=== PATIENT | female | born 1935 | race African-American/Black ===

== ENCOUNTER 2017-09-02 08:11 | Emergency (ER) | payer OTHER ==
--- OUTSIDE RECORDS SUMMARY | 2017-09-02 08:14 | XMS REPORT ---
:1935 Author Organization [facility] Care Team Providers Name Role Phone Selina Chirinos Provider Role Unavailable Allergies, Adverse Reactions, Alerts Substance Reaction Event Type N.K.D.A. Info Not Available Non Drug Allergy Problems Problem Type Condition Code Onset Dates Condition Status Problem 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 Active Problem Pain in left knee M25.562 Active Problem Hyperlipidemia, unspecified E78.5 Active hyperlipidemia type Problem Hypertension I10 Active Problem Lymphoma C85.90 Active Problem Hyperlipidemia E78.5 Active Problem Sinus problem J34.9 Active Problem Peripheral edema R60.9 Active Problem Seasonal allergies J30.2 Active Problem Varicose veins I86.8 Active Assessment Pain in right leg M79.604 Active Assessment Pain of left leg M79.605 Active Assessment 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 Active Assessment Peripheral edema R60.9 Active Assessment Hypertension, unspecified type I10 Active Assessment Hyperlipidemia, unspecified E78.5 Active hyperlipidemia type Problem Hypertension, unspecified type I10 Active Assessment Varicose veins of both legs with I83.893 Active edema Problem Varicose veins of both legs with I83.893 Active edema Medications Medication Code Code Instructions Start End Status Dosage System Date Date Vitamin B12 [facility] 09301615272 2500 orally Active one under tongue once a day Deshaun Aspirin EC ND 67058162553 81 MG Orally Active 1 tablet Low Dose Once a day Ciprofloxacin ND 75203975869 500 MG Orally Active 1 tablet HCl Twice a day x7 days Vitamin D3 [facility] 07337517038 2000 UNIT Active 1 capsule Orally Once a day NIFEdipine [facility] [address]-61 60 MG Orally Active 1 tablet Once a day Furosemide ND 70162463912 20 mg Orally Active 1 tablet Once a day in am as needed for leg swelling Potassium ND 57799150582 20 MEQ Orally Sept Active 1 tablet Chloride ER Once a day 15, taken with 2018 lasix as needed; take with food Simvastatin ND 72403902013 40 MG Orally Active 1 tablet Once a day in the evening Results No Known Results Summary Purpose eClinicalWorks Submission
--- NOTE | 2017-09-02 09:19 | RAD REPORT ---
EXAM DESCRIPTION: CT - Stone Protocol - 09/02/2017 8:58 am CLINICAL HISTORY: Flank pain. right flank/groin pain, urinary frequency COMPARISON: Abdomen Pelvis Wo Contrast dated 11/16/2016; Abdomen Pelvis W Contrast dated 07/03/2016 TECHNIQUE: Axial images were obtained without oral or IV contrast. Lack of contrast limits solid org an and vascular assessment. The [id number] spans the entirety of the system partially obscuring uppermost abdomen and lung bases. Coronal reformatted images were obtained and reviewed. All CT scans are performed using dose optimization technique as appropriate and may include automated exposure control or mA/KV adjustment according to patient size. FINDINGS: The lower lung santana are clear. Imaged portions of the liver and spleen show no suspicious findings on non-contrast imaging. The panc reas and adrenal glands are normal. No pathologic lymphadenopathy in the abdomen or pelvis. Small fat containing umbilical hernia. No urinary tract stones or obstructive uropathy. No bowel obstruction, free air, free fluid or abscess. The appendix is not identified as a discrete s tructure, however, no secondary findings of appendicitis are identified. Mild nonspecific mesenteric edema noted, without change. Moderate lumbosacral degenerative changes. IMPRESSION: No urinary tract stones or obstructive uropathy. No new or aggressive finding is identified.
[2017-09-02 09:24] LABS: Absolute Lymphocytes (CBC) 1.4 K/uL (0.7-4.9); Absolute Monocytes 0.5 K/uL (0.1-1.3); Absolute Neutrophil 3.4 K/uL (1.8-8.0); Basophils % 0.9 % (0-1.3); Eosinophils % 2.2 % (0-4.4); Hematocrit 34.6 % (36.0-45.0); Lymphocytes % 24.9 % (15.3-44.8); MCH 31.2 pg (27.0-35.0); MCV 85.6 fL (80-100); MPV 7.7 fL (7.6-11.3); Monocytes % 9.4 % (3.3-12.3); RBC Red Blood Cell Count 4.05 M/uL (3.86-4.86)
[2017-09-02 09:42] LABS: Albumin 3.7 g/dL (3.4-5.0); Bilirubin Direct 0.2 mg/dL (0-0.2); Bilirubin Total 0.8 mg/dL (0.2-1.0); Potassium 3.5 mmol/L (3.5-5.1); Protein, Total 8.5 g/dL (6.4-8.2)
--- NOTE | 2017-09-02 10:16 | ER ---
Nurse's Notes [facility] Name: Celia Shaw Age: 81 yrs Sex: Female : 1935 Arrival Date: 09/02/2017 Time: 08:15 Bed 4 Private MD: Selina Chirinos Diagnosis: Urinary tract infection, site not specified;Dehydration Presentation: 09/02 08:38 Presenting complaint: Patient states: has had right flank pain radiating to RLQ and iw down right leg since last night, also has urinary frequency and dark colored urine since last night. Transition of care: patient was not received from another setting of care. Onset of symptoms was September 02, 2017. Risk Assessment: Do you want to hurt yourself or someone else? Patient reports no desire to harm self or others. Initial Sepsis Screen: Does the patient meet any 2 criteria? No. Patient's initial sepsis screen is negative. Does the patient have a suspected source of infection? No. Patient's initial sepsis screen is negative. Care prior to arrival: None. 08:38 Method Of Arrival: Wheelchair iw 08:38 Acuity: MIKE 3 iw Historical: - Allergies: 08:41 NKA; iw - Home Meds: 08:41 aspirin 81 mg Oral TbEC 1 tab once daily [Active]; Centrum Complete 18-400 mg-mcg Oral iw tab 1 tab once daily [Active]; furosemide 20 mg Oral tab 1 tab once daily [Active]; nifedipine 60 mg Oral TbER 1 tab once daily [Active]; potassium chloride 10 mEq Oral cpER 1 cap once daily [Active]; simvastatin 40 mg Oral tab 1 tab once daily [Active]; - PMHx: 08:41 Hyperlipidemia; Hypertension; LYMPHOMA; iw - PSHx: 08:41 lymphoma surgery; iw - Immunization history:: Adult Immunizations up to date. - Ebola Screening: : Patient negative for fever greater than or equal to 101.5 degrees Fahrenheit, and additional compatible Ebola Virus Disease symptoms Patient denies exposure to infectious person Patient denies travel to an Ebola-affected area in the 21 days before illness onset No symptoms or risks identified at this time. - Family history:: not pertinent. - Social history:: Smoking status: Patient/guardian denies using tobacco. - Hospitalizations: : No recent hospitalization is reported. Screenin:53 Abuse screen: Denies threats or abuse. Nutritional screening: No deficits noted. ae1 Tuberculosis screening: No symptoms or risk factors identified. Fall Risk No fall in past 12 months (0 pts). Secondary diagnosis (15 points) impaired mobility, IV access (20 points). Ambulatory Aid- Crutches/Cane/Walker (15 pts). Gait- Normal/Bed Rest/Wheelchair (0 pts) Mental Status- Oriented to own ability (0 pts). Assessment: 09:40 General: Appears in no apparent distress. uncomfortable, obese, well groomed, Behavior ae1 is calm, cooperative. Pain: Complains of pain in right lower quadrant Pain currently is 6 out of 10 on a pain scale. Neuro: Level of Consciousness is awake, alert, obeys commands, Oriented to person, place, time, situation, Appropriate for age. Cardiovascular: Heart tones S1 S2 present Patient's skin is warm and dry. Respiratory: Airway is patent Respiratory effort is even, unlabored, Respiratory pattern is regular, symmetrical, Breath sounds are clear bilaterally. GI: Bowel sounds present X 4 quads. Abd is soft and non tender. : Reports Upon arrival, patient attempted to urinate to no avail . EENT: wears glasses. . Derm: Skin is normal. Musculoskeletal: Patient ambulates with cane. 09:50 Reassessment: Patient up to bedside commode to urinate. Patient provided small amount ae1 of urine. Patient tolerated well. Vital Signs: 09:00 BP 158 / 83; Pulse 82; Resp 18; Pulse Ox 95% ; jl7 09:55 Temp 98.3(O); ae1 10:04 BP 140 / 93; Pulse 78; Resp 19; Pulse Ox 97% on R/A; ae1 11:08 BP 129 / 83; Pulse 79; Resp 18; Pulse Ox 95% on R/A; ae1 ED Course: 08:15 Patient arrived in ED. mr 08:15 Selina Chirinos MD is Private Physician. mr 08:32 Fernando Holley MD is Attending Physician. rn 08:38 Royer Rooney, SHARON is Primary Nurse. ae1 08:40 Triage completed. iw 08:55 CT completed. Patient tolerated procedure well. Patient moved to CT via wheelchair. sj Patient moved back from CT. 08:58 CT Stone Protocol In Process Unspecified. EDMS 09:13 Initial lab(s) drawn, by me, sent to lab. Inserted saline lock: 22 gauge in right jb1 antecubital area, using aseptic technique. Blood collected. 09:42 Arm band placed on left wrist. ae1 09:42 Placed in gown. Bed in low position. Call light in reach. Side rails up X 1. Cardiac ae1 monitor on. Pulse ox on. NIBP on. Warm blanket given. 10:15 Selina Chirinos MD is Referral Physician. rn 11:08 No provider procedures requiring assistance completed. IV discontinued, intact, ae1 bleeding controlled, No redness/swelling at site. Pressure dressing applied. Administered Medications: 10:27 Drug: Rocephin - (cefTRIAXone) 1 grams Route: IVPB; Infused Over: 30 mins; Site: right ae1 antecubital; 10:32 Follow up: IV Status: Completed infusion ae1 10:27 Drug: NS 0.9% 500 ml Route: IV; Rate: bolus; Site: right antecubital; ae1 11:08 Follow up: IV Status: Completed infusion ae1 Outcome: 10:15 Discharge ordered by . rn 11:09 Discharged to home via wheelchair. ae1 11:09 Condition: stable 11:09 Discharge instructions given to patient, Instructed on discharge instructions, follow up and referral plans. medication usage, Demonstrated understanding of instructions, Prescriptions given X 1. 11:19 Patient left the ED. ae1 Addendum: 09/06/2017 07:44 Addendum: Culture Results: Positive urine culture. No further action required. Bacteria s s sensitive to prescribed antibiotic. Signatures: Dispatcher [employer] EDMS Luis Fernando Comer jb1 Sandra Andrea mr BarrazaFabi Irene, RN Fernando Hickey MD MD rn Smirch, Shelby, RN RN ss Elliott, Andrea, RN RN ae1 Rhea Morales RN RN jl7
--- NOTE | 2017-09-02 10:16 | EDPHYS ---
Physician Documentation [facility] Name: Celia Shaw Age: 81 yrs Sex: Female : 1935 Arrival Date: 09/02/2017 Time: 08:15 Bed 4 Private MD: Selina Chirinos ED Physician Fernando Holley HPI: 09/02 08:55 This 81 yrs old Black Female presents to ER via Wheelchair with complaints of Abdominal rn Pain, Leg Pain, Back Pain. 08:55 The patient presents with abdominal pain in the lower abdomen. Onset: The rn symptoms/episode began/occurred yesterday. The symptoms do not radiate. Associated signs and symptoms: Pertinent positives: dysuria, Pertinent negatives: fever, vomiting, vomiting blood. The symptoms are described as achy. Modifying factors: The symptoms are alleviated by nothing, the symptoms are aggravated by nothing. Severity of pain: At its worst the pain was moderate in the emergency department the pain is unchanged. The patient has experienced a previous episode. Historical: - Allergies: 08:41 NKA; iw - Home Meds: 08:41 aspirin 81 mg Oral TbEC 1 tab once daily [Active]; Centrum Complete 18-400 mg-mcg Oral iw tab 1 tab once daily [Active]; furosemide 20 mg Oral tab 1 tab once daily [Active]; nifedipine 60 mg Oral TbER 1 tab once daily [Active]; potassium chloride 10 mEq Oral cpER 1 cap once daily [Active]; simvastatin 40 mg Oral tab 1 tab once daily [Active]; - PMHx: 08:41 Hyperlipidemia; Hypertension; LYMPHOMA; iw - PSHx: 08:41 lymphoma surgery; iw - Immunization history:: Adult Immunizations up to date. - Ebola Screening: : Patient negative for fever greater than or equal to 101.5 degrees Fahrenheit, and additional compatible Ebola Virus Disease symptoms Patient denies exposure to infectious person Patient denies travel to an Ebola-affected area in the 21 days before illness onset No symptoms or risks identified at this time. - Family history:: not pertinent. - Social history:: Smoking status: Patient/guardian denies using tobacco. - Hospitalizations: : No recent hospitalization is reported. ROS: 08:55 Constitutional: Negative for fever, chills, and weight loss, Eyes: Negative for injury, rn pain, redness, and discharge, Cardiovascular: Negative for chest pain, palpitations, and edema, Respiratory: Negative for shortness of breath, cough, wheezing, and pleuritic chest pain, Abdomen/GI: + right groin and abd pain Back: + low back pain MS/Extremity: Negative for injury and deformity, Skin: Negative for injury, rash, and discoloration, Neuro: Negative for headache, weakness, numbness, tingling, and seizure. Exam: 08:55 Constitutional: This is a well developed, well nourished patient who is awake, alert, rn and in no acute distress. Head/Face: Normocephalic, atraumatic. Cardiovascular: Regular rate and rhythm with a normal S1 and S2. No gallops, murmurs, or rubs. Normal PMI, no JVD. No pulse deficits. Respiratory: Lungs have equal breath sounds bilaterally, clear to auscultation and percussion. No rales, rhonchi or wheezes noted. No increased work of breathing, no retractions or nasal flaring. Abdomen/GI: soft, + mild RLQ tenderness, no rebound, + mild suprapubic tenderness MS/ Extremity: Pulses equal, no cyanosis. Neurovascular intact. Full, normal range of motion. Equal circumference. Neuro: Awake and alert, GCS 15, oriented to person, place, time, and situation. Cranial nerves II-XII grossly intact. Motor strength 5/5 in all extremities. Sensory grossly intact. Vital Signs: 09:00 BP 158 / 83; Pulse 82; Resp 18; Pulse Ox 95% ; jl7 09:55 Temp 98.3(O); ae1 10:04 BP 140 / 93; Pulse 78; Resp 19; Pulse Ox 97% on R/A; ae1 11:08 BP 129 / 83; Pulse 79; Resp 18; Pulse Ox 95% on R/A; ae1 MDM: 08:32 Patient medically screened. rn 10:14 Differential diagnosis: non-specific abd pain, Ureterolithiasis, urinary tract rn infection. Data reviewed: vital signs, nurses notes, lab test result(s), radiologic studies, CT scan, and as a result, I will discharge patient. Counseling: I had a detailed discussion with the patient and/or guardian regarding: the historical points, exam findings, and any diagnostic results supporting the discharge/admit diagnosis, lab results, radiology results, the need for outpatient follow up, to return to the emergency department if symptoms worsen or persist or if there are any questions or concerns that arise at home. Special discussion: Based on the patient's Hx, exam, and Dx evaluation, there is no indication for emergent surgery or inpatient Tx. It is understood by the patient/guardian that if the Sx's persist or worsen they need to return immediately for re-evaluation. I discussed with the patient/guardian in detail that at this point there is no indication for admission to the hospital. It is understood, however, that if the symptoms persist or worsen the patient needs to return immediately for re-evaluation. 09/02 08:40 Order name: Basic Metabolic Panel; Complete Time: 10:14 rn 09/02 08:40 Order name: CBC with Diff; Complete Time: 10:14 rn 09/02 08:40 Order name: Hepatic Function; Complete Time: 10:14 rn 09/02 08:40 Order name: Lipase; Complete Time: 10:14 rn 09/02 08:40 Order name: Urine Microscopic Only rn 09/02 10:10 Order name: Urine Dipstick--Ancillary (enter results) ag 09/02 08:40 Order name: IV Saline Lock; Complete Time: 09:13 rn 09/02 08:40 Order name: Labs collected and sent; Complete Time: 09:13 rn 09/02 08:40 Order name: Urine Dipstick-Ancillary (obtain specimen); Complete Time: 09:54 rn 09/02 08:40 Order name: CT Stone Protocol; Complete Time: 09:23 rn Administered Medications: 10:27 Drug: Rocephin - (cefTRIAXone) 1 grams Route: IVPB; Infused Over: 30 mins; Site: right ae1 antecubital; 10:32 Follow up: IV Status: Completed infusion ae1 10:27 Drug: NS 0.9% 500 ml Route: IV; Rate: bolus; Site: right antecubital; ae1 11:08 Follow up: IV Status: Completed infusion ae1 Disposition: 09/02/17 10:15 Discharged to Home. Impression: Urinary tract infection, site not specified, Dehydration. - Condition is Stable. - Discharge Instructions: Dehydration, Adult, Urinary Tract Infection. - Prescriptions for cefpodoxime 100 mg Oral Tablet - take 2 tablet by ORAL route every 12 hours for 10 days take with food; 40 tablet. - Medication Reconciliation Form, Thank You Letter, Antibiotic Education, Prescription Opioid Use form. - Follow up: Selina Chirinos MD; When: 2 - 3 days; Reason: Recheck today's complaints, Re-evaluation by your physician. - Problem is new. - Symptoms have improved. Signatures: Dispatcher [employer] EDGrace Fulton RN RN iw Nieto, Roman, MD MD rn Elliott, Andrea, RN RN ae1 Corrections: (The following items were deleted from the chart) 11:19 10:15 09/02/2017 10:15 Discharged to Home. Impression: Urinary tract infection, site ae1 not specified; Dehydration. Condition is Stable. Forms are Medication Reconciliation Form, Thank You Letter, Antibiotic Education, Prescription Opioid Use. Follow up: Selina Chirinos; When: 2 - 3 days; Reason: Recheck today's complaints, Re-evaluation by your physician. Problem is new. Symptoms have improved. rn
[2017-09-02] MEDS ORDERED: NA CHLORIDE 0.9% 500 ML ONE (10:27)
[2017-09-02] MEDS ORDERED: CEFTRIAXONE/SWI 1gm 1 GM/10 ML SYR ONE (10:27)
[2017-09-02 11:20] LABS: Urine Amorphous Sediment 1+ /HPF (NONE SEEN); Urine Bacteria 20-50 /HPF (<20); Urine Culture Reflex Order REFLEXED; Urine Mucus 1+ /HPF (NONE SEEN); Urine RBC <5 /HPF (NONE SEEN)
[2017-09-02 11:21] LABS: Urine Blood TRACE (NEG); Urine Glucose NEGATIVE (NEG); Urine Protein 1+ (NEG)
[2017-09-02 11:34] VITALS: TEMP 98.3
[2017-09-02 11:36] VITALS: BP 129/83; O2SAT 95
== END 2017-09-02 11:19 | disposition home or self-care (01) ==
LOC: ER 08:11
DX: N39.0 Urinary tract infection, site not specified (principal); E86.0 Dehydration; I10 Essential (primary) hypertension; E78.5 Hyperlipidemia, unspecified; Z85.72 Personal history of non-Hodgkin lymphomas; Z79.82 Long term (current) use of aspirin
CPT/HCPCS: 36415; 74176; 76377; 80048; 80076; 83690; 85025; 87077 ×2; 87086; 87088; 87186 ×2; 96361; 96374; 99285; J0696; 81003; 81015

== ENCOUNTER 2017-12-17 13:45 | Emergency (ER) | payer OTHER ==
--- OUTSIDE RECORDS SUMMARY | 2017-12-17 13:47 | XMS REPORT ---
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 Active Problem Pain in left knee M25.562 Active Problem Hyperlipidemia, unspecified E78.5 Active hyperlipidemia type Problem Hypertension I10 Active Problem Lymphoma C85.90 Active Problem Hyperlipidemia E78.5 Active Problem Sinus problem J34.9 Active Problem Peripheral edema R60.9 Active Problem Seasonal allergies J30.2 Active Problem Varicose veins I86.8 Active Assessment Urinary tract infection, site not N39.0 Active specified Problem Hypertension, unspecified type I10 Active Problem Varicose veins of both legs with I83.893 Active edema Medications Medication Code Code Instructions Start End Status Dosage System Date Date Vitamin D3 [facility] 54955199767 2000 UNIT Active 1 capsule Orally Once a day Ciprofloxacin [facility] 91265673278 500 MG Orally September 22Sep Active 1 tablet HCl every 12 hrs 2017 Simvastatin ND 34266298387 40 MG Orally Active 1 tablet Once a day in the evening NIFEdipine [facility] [address]-19 60 MG Orally Active 1 tablet Once a day Deshaun Aspirin EC ND 88094801965 81 MG Orally Active 1 tablet Low Dose Once a day Ciprofloxacin ND 33574712946 500 MG Orally Active 1 tablet HCl Twice a day x7 days Furosemide [facility] 58708981034 20 mg Orally Active 1 tablet Once a day in am as needed for leg swelling Potassium ND 10013566933 20 MEQ Orally Sept Active 1 tablet Chloride ER Once a day 15, taken with 2018 lasix as needed; take with food Vitamin B12 [facility] 52100251562 2500 orally Active one under tongue once a day Results Name Result Date Reference Range Unit Abnormality Flag URINALYSIS AUTO W/O SCOPE ----Blood (Hemolyzed) Negative 20170922 ----Blood (Non-Hemolyzed) Negative 20170922 ----Ketones 1+ 20170922 ----Glucose (mg/dL) Negative 20170922 ----Protein (mg/dL) 1+ 20170922 ----Specific [place] 1.015 20170922 ----pH 6.5 20170922 ----Leukocytes 3+ 20170922 ----Nitrite Negative 20170922 Summary Purpose eClinicalWorks Submission
--- OUTSIDE RECORDS SUMMARY | 2017-12-17 13:47 | XMS REPORT ---
[...] tract infection, site not N39.0 Active specified Assessment Follow-up exam Z09 Active Problem Hypertension, unspecified type I10 Active Assessment Hematuria, unspecified R31.9 Active Problem Varicose veins of both legs with I83.893 Active edema Medications Medication Code Code Instructions Start End Status Dosage System Date Date Vitamin D3 [facility] 59484391309 2000 UNIT Active 1 capsule Orally Once a day Simvastatin ND 72563786088 40 MG Orally Active 1 tablet Once a day in the evening Ciprofloxacin ND 35909094951 500 MG Orally Active 1 tablet HCl Twice a day x7 days Potassium ND 40443471391 20 MEQ Orally Sept Active 1 tablet Chloride ER Once a day 15, taken with 2018 lasix as needed; take with food Furosemide ND 87847883177 20 mg Orally Active 1 tablet Once a day in am as needed for leg swelling Vitamin B12 ND 69408042685 2500 orally Active one under tongue once a day Deshaun Aspirin EC ND 65571194464 81 MG Orally Active 1 tablet Low Dose Once a day Macrobid [facility] 25972932447 100 mg Orally September 07August Active 1 capsule every 12 hrs 2018 21, with food 2017 NIFEdipine [facility] [address]-24 60 MG Orally Active 1 tablet Once a day Results No Known Results Summary Purpose eClinicalWorks Submission
--- OUTSIDE RECORDS SUMMARY | 2017-12-17 13:47 | XMS REPORT ---
:1935 Author [facility] Care Team Providers Name Role Phone Selina Chirinos Provider Role Unavailable Allergies, Adverse Reactions, Alerts Substance Reaction Event Type N.K.D.A. Info Not Available Non Drug Allergy Problems Problem Type Condition Code Onset Dates Condition Status Problem 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 Active Problem Pain in left knee M25.562 Active Problem Hyperlipidemia, unspecified E78.5 Active hyperlipidemia type Problem Hypertension I10 Active Assessment 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 Active Problem Lymphoma C85.90 Active Problem Hyperlipidemia E78.5 Active Problem Sinus problem J34.9 Active Problem Peripheral edema R60.9 Active Problem Seasonal allergies J30.2 Active Problem Varicose veins I86.8 Active Assessment Peripheral edema R60.9 Active Assessment Hematuria, unspecified R31.9 Active Assessment Hyperlipidemia, unspecified E78.5 Active hyperlipidemia type Assessment Varicose veins I86.8 Active Assessment Hypertension, unspecified type I10 Active Assessment Urinary tract infection, site not N39.0 Active specified Problem Hypertension, unspecified type I10 Active Assessment Abnormal urinalysis R82.90 Active Problem Varicose veins of both legs with I83.893 Active edema Medications Medication Code Code Instructions Start End Status Dosage System Date Date Simvastatin ND 84232800121 40 MG Orally Active 1 tablet Once a day in the evening Vitamin D3 ND 42617598085 2000 UNIT Active 1 capsule Orally Once a day Vitamin B12 ND 66987216348 2500 orally Active one under tongue once a day NIFEdipine ER ND 28515103992 60 MG Orally Oct 24, Active 1 tablet Once a day 2018 on an empty stomach Ciprofloxacin ND 84044958756 500 MG Orally Active 1 tablet HCl Twice a day x7 days Deshaun Aspirin EC ND 30306751211 81 MG Orally Active 1 tablet Low Dose Once a day Potassium ND 78256290635 20 MEQ Orally May Active 1 tablet Chloride ER Once a day 24, taken with 2019 lasix as needed; take with food NIFEdipine [facility] [address]-59 60 MG Orally Active 1 tablet Once a day Furosemide [facility] 76151175317 20 mg Orally Active 1 tablet Once a day in am as needed for leg swelling Results Name Result Date Reference Range Unit Abnormality Flag Urine Dip Stick ----SP. Gr 1.010 20171024 ----pH 6.0 20171024 ----Ketone 1+ 20171024 ----Glucose Negative 20171024 ----Blood Trace 20171024 ----Protein 2+ 20171024 ----Nitrite Negative 20171024 ----Leukocytes 3+ 20171024 Summary Purpose eClinicalWorks Submission
--- OUTSIDE RECORDS SUMMARY | 2017-12-17 13:47 | XMS REPORT ---
:1935 [facility] Care Team Providers Name Role Phone Selina [...] Status Dosage System Date Date Vitamin B12 [facility] 12551196953 2500 orally Active one under tongue once a day Deshaun Aspirin EC ND 60473270750 81 MG Orally Active 1 tablet Low Dose Once a day Ciprofloxacin ND 91608842846 500 MG Orally Active 1 tablet HCl Twice a day x7 days Vitamin D3 [facility] 93162735063 2000 UNIT Active 1 capsule Orally Once a day NIFEdipine [facility] [address]-21 60 MG Orally Active 1 tablet Once a day Furosemide ND 96530184242 20 mg Orally Active 1 tablet Once a day in am as needed for leg swelling Potassium ND 87778089765 20 MEQ Orally Sept Active 1 tablet Chloride ER Once a day 15, taken with 2018 lasix as needed; take with food Simvastatin ND 18280815378 40 MG Orally Active 1 tablet Once a day in the evening Results No Known Results Summary Purpose eClinicalWorks Submission
[2017-12-17] MEDS ORDERED: MORPHINE 4 MG/ML SYR ONE (15:09)
[2017-12-17] MEDS ORDERED: ONDANSETRON 4 MG/2 ML VIAL ONE (15:09)
[2017-12-17 15:12] LABS: Urine Blood TRACE (NEG); Urine Glucose NEGATIVE (NEG); Urine Protein NEGATIVE (NEG)
[2017-12-17 15:29] LABS: Albumin 3.7 g/dL (3.4-5.0); Bilirubin Direct 0.1 mg/dL (0-0.2); Bilirubin Total 0.5 mg/dL (0.2-1.0); Potassium 3.5 mmol/L (3.5-5.1); Protein, Total 8.6 g/dL (6.4-8.2)
[2017-12-17 15:40] LABS: Absolute Lymphocytes (CBC) 1.8 K/uL (0.7-4.9); Absolute Monocytes 0.4 K/uL (0.1-1.3); Absolute Neutrophil 3.2 K/uL (1.8-8.0); Basophils % 1.3 % (0-1.3); Eosinophils % 1.6 % (0-4.4); Hematocrit 39.5 % (36.0-45.0); Lymphocytes % 32.7 % (15.3-44.8); MCH 28.8 pg (27.0-35.0); MCV 83.2 fL (80-100); MPV 8.1 fL (7.6-11.3); Monocytes % 7.9 % (3.3-12.3); RBC Red Blood Cell Count 4.75 M/uL (3.86-4.86)
--- NOTE | 2017-12-17 15:40 | RAD REPORT ---
EXAM DESCRIPTION: USExtrem Venous W Compress Bil12/17/2017 3:23 pm CLINICAL HISTORY: Bilateral leg pain COMPARISON: 2014 FINDINGS: The common femoral, superficial femoral, popliteal and posterior tibial veins bilaterally are compressible and demonstrate augmentation. Doppler demonstrates good flow. IMPRESSION: No evidence of deep venous thrombosis involving either lower extremity.
--- NOTE | 2017-12-17 16:31 | RAD REPORT ---
EXAM DESCRIPTION: CT - Abdomen Pelvis W Contrast - 12/17/2017 4:02 pm CLINICAL HISTORY: Abdominal pain/right lower quadrant pain bold COMPARISON: August 2017 and 2013 TECHNIQUE: Computed axial tomography of the abdomen pelvis was obtained. 100 cc Isovue-300 was admin istered intravenously. Oral contrast was not requested which limits evaluation of bowel. All CT scans are performed using dose optimization technique as appropriate and may include automated exposure control or mA/KV adjustment according to patient size. FINDINGS: The liver, spleen, pancreas, adrenal and kidneys appear unremarkable. There is no evidence of diverticulitis. The appendix is not seen. Small umbilical hernia contains fat. Two small lymph nodes within the retrocrural region are unchange d from 2013 IMPRESSION: No acute abnormality is displayed.
--- NOTE | 2017-12-17 16:52 | EDPHYS ---
Physician Documentation [facility] Name: Celia Shaw Age: 82 yrs Sex: Female : 1935 Arrival Date: 12/17/2017 Time: 13:48 Bed 25 Private MD: ED Physician Dion Duncan HPI: 12/17 14:41 This 82 yrs old Black Female presents to ER via Wheelchair with complaints of Abdominal kdr Pain \T\ bilateral leg pain. 14:41 The patient presents with abdominal pain right lower quadrant. Onset: The kdr symptoms/episode began/occurred gradually, yesterday. The symptoms radiate to the right flank. Associated signs and symptoms: Pertinent positives: The patient has had increasing pain to both lower legs from the knees to the ankles. She c/o swelling to both lower extremities where she has had prior venous stripping for varicose veins. The symptoms are described as achy, dull, vague. Modifying factors: The symptoms are alleviated by nothing, the symptoms are aggravated by movement, pressure. Severity of pain: At its worst the pain was moderate in the emergency department the pain has improved mildly. The patient has not experienced similar symptoms in the past. The patient has not recently seen a physician. She states that she feels like it did when she had a prior UTI. Historical: - Allergies: 13:52 NKA; aj1 - Home Meds: 13:52 aspirin 81 mg Oral TbEC 1 tab once daily [Active]; Centrum Complete 18-400 mg-mcg Oral aj1 tab 1 tab once daily [Active]; furosemide 20 mg Oral tab 1 tab once daily [Active]; nifedipine 60 mg Oral TbER 1 tab once daily [Active]; potassium chloride 10 mEq Oral cpER 1 cap once daily [Active]; simvastatin 40 mg Oral tab 1 tab once daily [Active]; - PMHx: 13:52 Hyperlipidemia; Hypertension; LYMPHOMA; aj1 - Immunization history:: Flu vaccine is up to date. - Social history:: Smoking status: Patient/guardian denies using tobacco. - Ebola Screening: : Patient denies travel to an Ebola-affected area in the 21 days before illness onset. ROS: 14:41 Constitutional: Negative for fever, chills, and weight loss, Eyes: Negative for injury, kdr pain, redness, and discharge, ENT: Negative for injury, pain, and discharge, Neck: Negative for injury, pain, and swelling, Cardiovascular: Negative for chest pain, palpitations, and edema, Respiratory: Negative for shortness of breath, cough, wheezing, and pleuritic chest pain, Back: Negative for injury and pain, : Negative for injury, bleeding, discharge, and swelling, Skin: Negative for injury, rash, and discoloration, Neuro: Negative for headache, weakness, numbness, tingling, and seizure activity. Psych: Negative for depression, anxiety, suicide ideation, homicidal ideation, and hallucinations, Allergy/Immunology: Negative for hives, rash, and allergies, Endocrine: Negative for neck swelling, polydipsia, polyuria, polyphagia, and marked weight changes, Hematologic/Lymphatic: Negative for swollen nodes, abnormal bleeding, and unusual bruising. 14:41 Abdomen/GI: Positive for abdominal pain, Negative for nausea, vomiting, and diarrhea, diarrhea, constipation, abdominal distension, anorexia, dysphagia, hematemesis, black/tarry stool, rectal pain, rectal bleeding, bowel incontinence. 14:41 MS/extremity: Positive for pain, swelling, tenderness. Exam: 14:41 Constitutional: This is a well developed, well nourished patient who is awake, alert, kdr and in no acute distress. Head/Face: Normocephalic, atraumatic. Eyes: Pupils equal round and reactive to light, extra-ocular motions intact. Lids and lashes normal. Conjunctiva and sclera are non-icteric and not injected. Cornea within normal limits. Periorbital areas with no swelling, redness, or edema. Neck: Trachea midline, no thyromegaly or masses palpated, and no cervical lymphadenopathy. Supple, full range of motion without nuchal rigidity, or vertebral point tenderness. No Meningismus. Chest/axilla: Normal chest wall appearance and motion. Nontender with no deformity. No lesions are appreciated. Cardiovascular: Regular rate and rhythm with a normal S1 and S2. No gallops, murmurs, or rubs. Normal PMI, no JVD. No pulse deficits. Respiratory: Lungs have equal breath sounds bilaterally, clear to auscultation and percussion. No rales, rhonchi or wheezes noted. No increased work of breathing, no retractions or nasal flaring. Back: No spinal tenderness. No costovertebral tenderness. Full range of motion. Skin: Warm, dry with normal turgor. Normal color with no rashes, no lesions, and no evidence of cellulitis. 14:41 Abdomen/GI: Inspection: obese Bowel sounds: normal, active, Palpation: soft, mild abdominal tenderness, in the anterior aspect of right lateral abdomen and right lower quadrant, rebound tenderness, is not appreciated, voluntary guarding, is not appreciated, involuntary guarding, is not appreciated. Vital Signs: 13:52 BP 135 / 86; Pulse 102; Resp 20; Temp 97.2; Pulse Ox 98% on R/A; Weight 97.52 kg (R); aj1 Height 5 ft. 6 in. (167.64 cm) (R); Pain 10/10; 14:00 BP 140 / 90 RA Sitting (auto/lg); Pulse 95; Resp 19; Pulse Ox 97% on R/A; Pain 10/10; jp3 15:09 BP 128 / 82; Pulse 95; Resp 16; Pulse Ox 97% on R/A; kr2 16:34 BP 131 / 82; Pulse 87; Resp 16; Pulse Ox 95% on R/A; kr2 17:21 BP 130 / 80; Pulse 88; Resp 17; Pulse Ox 99% ; kr2 13:52 Body Mass Index 34.70 (97.52 kg, 167.64 cm) aj1 MDM: 14:41 Data reviewed: vital signs, nurses notes, lab test result(s), radiologic studies. kdr Counseling: I had a detailed discussion with the patient and/or guardian regarding: the historical points, exam findings, and any diagnostic results supporting the discharge/admit diagnosis, lab results, radiology results. 16:50 ED course: The patient is improved with the interventions given. She had no other c/o kdr or concerns.. 16:51 Patient medically screened. kdr 12/17 14:37 Order name: Basic Metabolic Panel; Complete Time: 15:43 kdr 12/17 14:37 Order name: CBC with Diff; Complete Time: 15:43 kdr 12/17 14:37 Order name: Creatinine for Radiology; Complete Time: 15:43 kdr 12/17 14:37 Order name: Hepatic Function; Complete Time: 15:43 kdr 12/17 14:37 Order name: Lipase; Complete Time: 15:43 kdr 12/17 14:37 Order name: Urine Culture kdr 12/17 14:37 Order name: IV Saline Lock; Complete Time: 15:00 kdr 12/17 14:37 Order name: CT Abd/Pelvis - W/Contrast; Complete Time: 16:41 kdr 12/17 14:40 Order name: US Extremity Venous W Compression Shai; Complete Time: 15:43 kdr 12/17 15:08 Order name: Urine Dipstick--Ancillary (enter results); Complete Time: 15:43 ms 12/17 14:37 Order name: Labs collected and sent; Complete Time: 15:00 kdr Administered Medications: 15:05 Drug: Zofran 4 mg Route: IVP; Site: left antecubital; kr2 15:30 Follow up: Response: No adverse reaction kr2 15:10 Drug: morphine 4 mg Route: IVP; Site: left antecubital; kr2 15:30 Follow up: Response: No adverse reaction; Pain is decreased kr2 17:13 Drug: Bactrim (160 mg-800 mg (DS) 1 tablet Route: PO; kr2 17:13 Follow up: Response: Medication administered at discharge. kr2 17:13 Drug: Tylenol #3 (300 mg-30 mg) 1 tablet Route: PO; kr2 17:13 Follow up: Response: Medication administered at discharge. kr2 Disposition: 12/17/17 16:51 Discharged to Home. Impression: Abdominal and pelvic pain, UTI. - Condition is Stable. - Discharge Instructions: Abdominal Pain, Adult, [id number]. - Prescriptions for Zofran 4 mg Oral Tablet - take 1 tablet by ORAL route every 4-6 hours As needed; 12 tablet. Tramadol 50 mg Oral Tablet - take 1 tablet by ORAL route every 8 hours as needed; 12 tablet. Bactrim DS 800- 160 mg Oral Tablet - take 1 tablet by ORAL route every 12 hours for 7 days; 14 tablet. - Medication Reconciliation Form, Thank You Letter, Antibiotic Education form. - Follow up: Private Physician; When: 2 - 3 days; Reason: If symptoms return, Further diagnostic work-up, Recheck today's complaints, Continuance of care, Re-evaluation by your physician. - Problem is new. - Symptoms have improved. Signatures: Dispatcher [employer] EDIvana Epperson RN RN aj1 Dion Duncan MD MD kdr Paulina, Kandis, RN RN kr2 Corrections: (The following items were deleted from the chart) 17:22 16:51 12/17/2017 16:51 Discharged to Home. Impression: Abdominal and pelvic pain; UTI. kr2 Condition is Stable. Forms are Medication Reconciliation Form, Thank You Letter, Antibiotic Education, Prescription Opioid Use. Follow up: Private Physician; When: 2 - 3 days; Reason: If symptoms return, Further diagnostic work-up, Recheck today's complaints, Continuance of care, Re-evaluation by your physician. Problem is new. Symptoms have improved. kdr
--- NOTE | 2017-12-17 16:52 | ER ---
Nurse's Notes [facility] Name: Celia Shaw Age: 82 yrs Sex: Female : 1935 Arrival Date: 12/17/2017 Time: 13:48 Bed 25 Private MD: Diagnosis: Abdominal and pelvic pain;UTI Presentation: 12/17 13:48 Presenting complaint: Patient states: Reports pain to both knees, both lower legs, and aj1 RLQ since yesterday. Denies injury to either leg. Denies N/V/D. Denies fever. Transition of care: patient was not received from another setting of care. Onset of symptoms was December 16, 2017. Risk Assessment: Do you want to hurt yourself or someone else? Patient reports no desire to harm self or others. Initial Sepsis Screen: Does the patient meet any 2 criteria? HR > 90 bpm. No. Patient's initial sepsis screen is negative. Does the patient have a suspected source of infection? Yes: Acute abdominal pain. Care prior to arrival: None. 13:48 Method Of Arrival: Wheelchair aj1 13:48 Acuity: MIKE 3 aj1 Triage Assessment: 13:52 General: Appears in no apparent distress. uncomfortable, Behavior is calm, cooperative, aj1 appropriate for age. Pain: Complains of pain in right lower quadrant, right leg and left leg Pain currently is 10 out of 10 on a pain scale. Neuro: Level of Consciousness is awake, alert, obeys commands. Cardiovascular: Patient's skin is warm and dry. Respiratory: Airway is patent Respiratory effort is even, unlabored, Respiratory pattern is regular, symmetrical. GI: Patient currently denies diarrhea, nausea, vomiting. Historical: - Allergies: 13:52 NKA; aj1 - Home Meds: 13:52 aspirin 81 mg Oral TbEC 1 tab once daily [Active]; Centrum Complete 18-400 mg-mcg Oral aj1 tab 1 tab once daily [Active]; furosemide 20 mg Oral tab 1 tab once daily [Active]; nifedipine 60 mg Oral TbER 1 tab once daily [Active]; potassium chloride 10 mEq Oral cpER 1 cap once daily [Active]; simvastatin 40 mg Oral tab 1 tab once daily [Active]; - PMHx: 13:52 Hyperlipidemia; Hypertension; LYMPHOMA; aj1 - Immunization history:: Flu vaccine is up to date. - Social history:: Smoking status: Patient/guardian denies using tobacco. - Ebola Screening: : Patient denies travel to an Ebola-affected area in the 21 days before illness onset. Screenin:00 Abuse screen: Denies threats or abuse. Denies injuries from another. Nutritional kr2 screening: No deficits noted. Tuberculosis screening: No symptoms or risk factors identified. Fall Risk Ambulatory Aid- Crutches/Cane/Walker (15 pts). Assessment: 14:30 General: Appears in no apparent distress. uncomfortable, well groomed, well developed, kr2 Behavior is calm, cooperative, appropriate for age. Pain: Complains of pain in pelvis and left leg and right leg Pain radiates to abdomen Pain currently is 8 out of 10 on a pain scale. Quality of pain is described as aching, Is continuous, Alleviated by rest, Aggravated by increased activity. Neuro: Level of Consciousness is awake, alert, obeys commands, Oriented to person, place, time, situation, Appropriate for age Intact. Cardiovascular: Capillary refill < 3 seconds in bilateral fingers Patient's skin is warm and dry. Edema is 1+ to left leg and right leg Rhythm is regular. Respiratory: Airway is patent Respiratory effort is even, unlabored, Respiratory pattern is regular, symmetrical. GI: Bowel sounds present X 4 quads. Abd is soft and non tender X 4 quads. : Reports pain in suprapubic area difficulty urinating. EENT: Oral mucosa is moist. Derm: Skin is intact, is healthy with good turgor, Skin is pink, warm \T\ dry. Musculoskeletal: Circulation, motion, and sensation intact. Range of motion: limited in left knee and right knee. 15:30 Reassessment: Patient appears in no apparent distress at this time. Patient and/or kr2 family updated on plan of care and expected duration. Pain level reassessed. Patient is alert, oriented x 3, equal unlabored respirations, skin warm/dry/pink. States pain has decreased. 16:34 Reassessment: Patient appears in no apparent distress at this time. Patient and/or kr2 family updated on plan of care and expected duration. Pain level reassessed. Patient is alert, oriented x 3, equal unlabored respirations, skin warm/dry/pink. 17:21 Reassessment: Patient appears in no apparent distress at this time. Patient and/or kr2 family updated on plan of care and expected duration. Pain level reassessed. Patient is alert, oriented x 3, equal unlabored respirations, skin warm/dry/pink. Vital Signs: 13:52 BP 135 / 86; Pulse 102; Resp 20; Temp 97.2; Pulse Ox 98% on R/A; Weight 97.52 kg (R); aj1 Height 5 ft. 6 in. (167.64 cm) (R); Pain 10/10; 14:00 BP 140 / 90 RA Sitting (auto/lg); Pulse 95; Resp 19; Pulse Ox 97% on R/A; Pain 10/10; jp3 15:09 BP 128 / 82; Pulse 95; Resp 16; Pulse Ox 97% on R/A; kr2 16:34 BP 131 / 82; Pulse 87; Resp 16; Pulse Ox 95% on R/A; kr2 17:21 BP 130 / 80; Pulse 88; Resp 17; Pulse Ox 99% ; kr2 13:52 Body Mass Index 34.70 (97.52 kg, 167.64 cm) aj1 ED Course: 13:48 Patient arrived in ED. tw3 13:52 Triage completed. aj1 13:52 Arm band placed on Patient placed in an exam room. aj1 14:00 Pulse ox on. NIBP on. jp3 14:10 Kandis Gallardo, RN is Primary Nurse. kr2 14:11 Dion Duncan MD is Attending Physician. kdr 14:13 Bed in low position. Call light in reach. Side rails up X 1. Warm blanket given. Pillow jp3 given. 14:50 Urine collected: clean catch specimen, clear, Amount Voided: 6mL. Inserted saline lock: kr2 20 gauge in left antecubital area, using aseptic technique. Blood collected. 15:21 Ultrasound completed. Patient tolerated well. aa4 15:21 US Extremity Venous W Compression Shai In Process Unspecified. EDMS 15:[address] via wheelchair. cw1 15:58 CT completed. Patient moved back from CT. cw1 16:03 CT Abd/Pelvis - W/Contrast In Process Unspecified. EDMS 17:15 No provider procedures requiring assistance completed. IV discontinued, intact, kr2 bleeding controlled, No redness/swelling at site. Pressure dressing applied. Administered Medications: 15:05 Drug: Zofran 4 mg Route: IVP; Site: left antecubital; kr2 15:30 Follow up: Response: No adverse reaction kr2 15:10 Drug: morphine 4 mg Route: IVP; Site: left antecubital; kr2 15:30 Follow up: Response: No adverse reaction; Pain is decreased kr2 17:13 Drug: Bactrim (160 mg-800 mg (DS) 1 tablet Route: PO; kr2 17:13 Follow up: Response: Medication administered at discharge. kr2 17:13 Drug: Tylenol #3 (300 mg-30 mg) 1 tablet Route: PO; kr2 17:13 Follow up: Response: Medication administered at discharge. kr2 Outcome: 16:51 Discharge ordered by . kdr 17:20 Discharged to home via wheelchair. kr2 17:20 Condition: good 17:20 Discharge instructions given to patient, Instructed on discharge instructions, follow up and referral plans. medication usage, Demonstrated understanding of instructions, follow-up care, medications, Prescriptions given X 3. 17:22 Patient left the ED. kr2 Addendum: 12/20/2017 07:46 Addendum: Culture Results: Positive urine culture. No further action required. Bacteria i w sensitive to prescribed antibiotic. Signatures: Dispatcher [employer] EDMS Ivana Barron RN RN Dion Haider MD MD kdr Williams, Irene, RN RN iw Frazier, Amanda aa4 Deann Moreno cw1 [place] tw3 Kandis Gallardo RN RN kr2 Anderson Stephens jp3
[2017-12-17] MEDS ORDERED: SMZ./TMP. 800/160 MG TABLET ONE (17:05)
[2017-12-17] MEDS ORDERED: CODEINE 30MG/APAP 300MG TAB ONE (17:06)
[2017-12-17 17:42] VITALS: TEMP 97.2
[2017-12-17 17:47] VITALS: BP 130/80; O2SAT 99
== END 2017-12-17 17:22 | disposition home or self-care (01) ==
LOC: ER 13:45
DX: N39.0 Urinary tract infection, site not specified (principal); I10 Essential (primary) hypertension; E78.5 Hyperlipidemia, unspecified; Z85.72 Personal history of non-Hodgkin lymphomas; Z79.82 Long term (current) use of aspirin
CPT/HCPCS: 36415; 74177; 80048; 80076; 81003; 83690; 85025; 87077; 87086; 87088; 87186; 93970; 96374; 96375; 99284; J2405; Q9967

== ENCOUNTER 2019-04-08 09:00 | Emergency (ER) | payer MEDICARE, OTHER ==
--- OUTSIDE RECORDS SUMMARY | 2019-04-08 09:02 | XMS REPORT ---
:1935 [facility] Providers Name Role Phone [...] Active Problem Varicose veins I86.8 Active Assessment Hyperlipidemia E78.5 Active Assessment Varicose veins I86.8 Active Assessment 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 Active Assessment Hypertension I10 Active Assessment Peripheral edema R60.9 Active Problem Hypertension, unspecified type I10 Active Assessment Acute UTI N39.0 Active Problem Varicose veins of both legs with I83.893 Active edema Medications Medication Code Code Instructions Start End Status Dosage System Date Date Furosemide ND 68510677899 20 mg Orally Active 1 tablet in Once a day am as (Take with KCl) needed for leg swelling Augmentin [facility] 94231355806 500-125 MG Apr 03, Apr 10, Active 1 tablet Orally every 12 2018 2019 hrs Ciprofloxacin ND 83632673877 500 MG Orally Active 1 tablet HCl Twice a day x7 days Potassium ND 31284096957 20 MEQ Orally Dec 29, Active 1 tablet Chloride ER Once a day 2018 taken with lasix as needed; take with food NIFEdipine ER ND 18525998189 60 MG Orally Oct 24, Active 1 tablet on Once a day 2018 an empty stomach Vitamin D3 ND 14652597242 2000 UNIT Active 1 capsule Orally Once a day Vitamin B12 ND 57079888913 2500 orally Active one under tongue once a day Deshaun Aspirin EC ND 51619035155 81 MG Orally Active 1 tablet Low Dose Once a day Simvastatin ND 53961598080 40 MG Orally Active 1 tablet in Once a day the evening Results No Known Results Summary Purpose eClinicalWorks Submission
--- OUTSIDE RECORDS SUMMARY | 2019-04-08 09:03 | XMS REPORT ---
:1935 Author Organization [employer] Care Team Providers Name Role Phone Selina Chirinos Provider Role Unavailable Allergies No Known Allergies Problems Problem Type Condition Code Onset Dates Condition Status Problem Hyperlipidemia, unspecified E78.5 Active hyperlipidemia type Problem Peripheral edema R60.9 Active Problem Pain in left knee M25.562 Active Problem Hypertension, unspecified type I10 Active Problem Varicose veins of both legs with I83.893 Active edema Problem 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 Active Problem Hyperlipidemia E78.5 Active Problem Hypertension I10 Active Problem Depression screening Z13.31 Active Problem Varicose veins I86.8 Active Problem Sinus problem J34.9 Active Problem Lymphoma C85.90 Active Problem Seasonal allergies J30.2 Active Medications No Known Medications Results No Known Results Summary Purpose eClinicalWorks Submission
--- OUTSIDE RECORDS SUMMARY | 2019-04-08 09:03 | XMS REPORT ---
:1935 Author Organization [employer] Care Team Providers Name Role Phone Taran Selina Provider Role Unavailable Allergies, Adverse Reactions, Alerts Substance Reaction Event Type N.K.D.A. Info Not Available Non Drug Allergy Problems Problem Type Condition Code Onset Dates Condition Status Problem Pain in left knee M25.562 Active Problem Sinus problem J34.9 Active Problem Peripheral edema R60.9 Active Problem Myalgia M79.10 Active Assessment Myalgia M79.10 Active Problem Depression screening Z13.31 Active Assessment 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 Active Problem Allergic rhinitis, unspecified J30.9 Active seasonality, unspecified trigger Problem Seasonal allergies J30.2 Active Problem Varicose veins I86.8 Active Problem Hyperlipidemia E78.5 Active Problem Lymphoma C85.90 Active Assessment Allergic rhinitis, unspecified J30.9 Active seasonality, unspecified trigger Assessment Depression screening Z13.31 Active Assessment Hyperlipidemia, unspecified E78.5 Active hyperlipidemia type Assessment Peripheral edema R60.9 Active Problem Hypertension, unspecified type I10 Active Problem Varicose veins of both legs with I83.893 Active edema Assessment Hypertension, unspecified type I10 Active Problem 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 Active Problem Hyperlipidemia, unspecified E78.5 Active hyperlipidemia type Medications Medication Code Code Instructions Start End Date Status Dosage System Date Vitamin D3 [facility] 19045429541 400 UNIT Orally Active 800 IU__1 Once a day capsule Simvastatin ND 05183208363 40 MG Orally Active 1 tablet Once a day in the evening NIFEdipine ER ND 74804845491 60 MG Orally Oct 24, Active 1 tablet Once a day 2017 on an empty stomach Deshaun Aspirin EC ND 68474050949 81 MG Orally Active 1 tablet Low Dose Once a day Vitamin B12 [facility] 25067869973 2500 orally Active one under tongue once a day Potassium ND 49384782267 20 MEQ Orally May Active 1 tablet; Chloride ER Once a day 2019 take with lasix; as needed; take with food Ciprofloxacin ND 68788364177 500 MG Orally Active 1 tablet HCl Twice a day x7 days Furosemide NDC 68653113309 20 MG Orally Active 1 tablet Once a day in am as (Take with KCl) needed for leg swelling Calcium NDC 0 Orally Once Active 600 mg__1 daily tablet Results No Known Results Summary Purpose eClinicalWorks Submission
--- OUTSIDE RECORDS SUMMARY | 2019-04-08 09:03 | XMS REPORT ---
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 Active Problem Pain in left knee M25.562 Active Problem Hyperlipidemia, unspecified E78.5 Active hyperlipidemia type Problem Hypertension, unspecified type I10 Active Problem Varicose veins of both legs with I83.893 Active edema Problem Hypertension I10 Active Problem Lymphoma C85.90 Active Problem Hyperlipidemia E78.5 Active Problem Sinus problem J34.9 Active Problem Peripheral edema R60.9 Active Problem Seasonal allergies J30.2 Active Problem Varicose veins I86.8 Active Medications No Known Medications Results No Known Results Summary Purpose eClinicalWorks Submission
--- OUTSIDE RECORDS SUMMARY | 2019-04-08 09:03 | XMS REPORT ---
[...] Pain in left knee M25.562 Active Problem Hyperlipidemia E78.5 Active Problem Hypertension I10 Active Problem Depression screening Z13.31 Active Problem Varicose veins I86.8 Active Problem Sinus problem J34.9 Active Problem Lymphoma C85.90 Active Problem Seasonal allergies J30.2 Active Problem Hypertension, unspecified type I10 Active Assessment Depression screening Z13.31 Active Problem Varicose veins of both legs with I83.893 Active edema Assessment Encounter for Medicare annual Z00.00 Active wellness exam Problem 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 Active Medications Medication Code Code Instructions Start End Status Dosage System Date Date Deshaun Aspirin EC ND 39176234808 81 MG Orally Active 1 tablet Low Dose Once a day Calcium NDC 0 Orally Once Active 600 mg__1 daily tablet Ciprofloxacin ND 37431827436 500 MG Orally Active 1 tablet HCl Twice a day x7 days Vitamin B12 ND 53622171480 2500 orally Active one under tongue once a day Vitamin D3 ND 04313593615 400 UNIT Orally Active 800 IU__1 Once a day capsule Simvastatin ND 11259313338 40 MG Orally Active 1 tablet in Once a day the evening Potassium ND 51161214202 20 MEQ Orally Dec 29, Active 1 tablet Chloride ER Once a day 2018 taken with lasix as needed; take with food Furosemide ND 32733534359 20 mg Orally Active 1 tablet in Once a day am as (Take with KCl) needed for leg swelling NIFEdipine ER ND 98783790866 60 MG Orally Oct 24, Active 1 tablet on Once a day 2018 an empty stomach Results No Known Results Summary Purpose eClinicalWorks Submission
--- OUTSIDE RECORDS SUMMARY | 2019-04-08 09:03 | XMS REPORT ---
:1935 [facility] Team Providers Name Role Phone Taran Selina Provider Role Unavailable Allergies, Adverse Reactions, Alerts Substance Reaction Event Type N.K.D.A. Info Not Available Non Drug Allergy Problems Problem Type Condition Code Onset Dates Condition Status Assessment Fatigue, unspecified type R53.83 Active Assessment Dizziness R42 Active Assessment Chest pain, unspecified type R07.9 Active Assessment Shortness of breath R06.02 Active Assessment Urinary incontinence, unspecified R32 Active type Assessment Abnormal urinalysis R82.90 Active Assessment Abnormal urine odor R82.90 Active Assessment Nocturia R35.1 Active Assessment Hypertension, unspecified type I10 Active Problem Myalgia M79.10 Active Problem Allergic rhinitis, unspecified J30.9 Active seasonality, unspecified trigger Problem 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 Active Problem Urinary incontinence, unspecified R32 Active type Problem Acute left-sided low back pain M54.5 Active without sciatica Problem Status post fall Z91.81 Active Problem Nocturia R35.1 Active Problem Dizziness R42 Active Problem Hypertension, unspecified type I10 Active Problem Varicose veins of both legs with I83.893 Active edema Assessment Other chronic pain G89.29 Active Problem Shortness of breath R06.02 Active Problem Hyperlipidemia, unspecified E78.5 Active hyperlipidemia type Assessment Acute left-sided low back pain M54.5 Active without sciatica Problem Fatigue, unspecified type R53.83 Active Assessment Status post fall Z91.81 Active Problem Chest pain, unspecified type R07.9 Active Problem Pain in right knee M25.561 Active Problem Other chronic pain G89.29 Active Assessment Hyperlipidemia, unspecified E78.5 Active hyperlipidemia type Problem Lymphoma C85.90 Active Assessment Peripheral edema R60.9 Active Problem Pain in left knee M25.562 Active Assessment Myalgia M79.10 Active Problem Hyperlipidemia E78.5 Active Assessment 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 Active Problem Seasonal allergies J30.2 Active Assessment Pain in right knee M25.561 Active Problem Varicose veins I86.8 Active Assessment Pain in left knee M25.562 Active Problem Depression screening Z13.31 Active Problem Peripheral edema R60.9 Active Problem Sinus problem J34.9 Active Medications Medication Code Code Instructions Start End Status Dosage System Date Date Deshaun Aspirin EC ND 51472326006 81 MG Orally Active 1 tablet Low Dose Once a day Potassium ND 78659197034 20 MEQ Orally Active 1 tablet; Chloride ER Once a day take with lasix; as needed; take with food Vitamin B12 ND 42567798399 2500 orally Active one under tongue once a day Simvastatin ND 42518956786 40 MG Orally Active 1 tablet in Once a day the evening Furosemide ND 78536883930 20 MG Orally Active 1 tablet in Once a day am as (Take with KCl) needed for leg swelling NIFEdipine ER ND 00662636141 60 MG Orally Active 1 tablet on Once a day an empty stomach Calcium NDC 0 Orally Once Active 600 mg__1 daily tablet Vitamin D3 ND 27930631670 400 UNIT Orally Active 800 IU__1 Once a day capsule Gabapentin ND 97526928081 300 MG Orally Mar 15, Active 1 capsule Once a day in 2019 as needed evening for pain Ciprofloxacin ND 66597768258 500 MG Orally Active 1 tablet HCl Twice a day x7 days Results Name Result Date Reference Range Unit Abnormality Flag Urine Dip Stick ----Appearance Yellow & Clear 20190315 ----SP. Gr 1.010 20190315 ----pH 6.0 20190315 ----Ketone Negative 20190315 ----Glucose Negative 20190315 ----Blood Negative 20190315 ----Protein Negative 20190315 ----Nitrite Negative 20190315 ----Leukocytes 2+ [id number] Summary Purpose eClinicalWorks Submission
--- OUTSIDE RECORDS SUMMARY | 2019-04-08 09:03 | XMS REPORT ---
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 Active Problem Pain in left knee M25.562 Active Problem Hyperlipidemia, unspecified E78.5 Active hyperlipidemia type Assessment Urinary tract infection, site not N39.0 Active specified Problem Hypertension, unspecified type I10 Active Problem Varicose veins of both legs with I83.893 Active edema Problem Hypertension I10 Active Problem Lymphoma C85.90 Active Problem Hyperlipidemia E78.5 Active Problem Sinus problem J34.9 Active Problem Peripheral edema R60.9 Active Problem Seasonal allergies J30.2 Active Problem Varicose veins I86.8 Active Medications Medication Code Code Instructions Start End Status Dosage System Date Date Ciprofloxacin ND 97091674563 500 MG Orally Active 1 tablet HCl Twice a day x7 days Bactrim DS ND 04336467881 800-160 MG Apr 11, Apr 16, Active 1 tablet Orally Twice a 2018 2019 day Simvastatin ND 40867205473 40 MG Orally Active 1 tablet in Once a day the evening Vitamin D3 ND 85708824509 2000 UNIT Active 1 capsule Orally Once a day Furosemide ND 78912772148 20 mg Orally Active 1 tablet in Once a day am as (Take with KCl) needed for leg swelling Vitamin B12 [facility] 55379534837 2500 orally Active one under tongue once a day Deshaun Aspirin EC ND 86115889248 81 MG Orally Active 1 tablet Low Dose Once a day Potassium ND 43188490702 20 MEQ Orally Dec 29, Active 1 tablet Chloride ER Once a day 2018 taken with lasix as needed; take with food NIFEdipine ER ND 32137444240 60 MG Orally Oct 24, Active 1 tablet on Once a day 2018 an empty stomach Results No Known Results Summary Purpose eClinicalWorks Submission
--- OUTSIDE RECORDS SUMMARY | 2019-04-08 09:04 | XMS REPORT ---
:1935 Author Organization eClinicalWorks Care Team Providers Name Role Phone Selina Chirinos Provider Role Unavailable Allergies No Known Allergies Problems Problem Type Condition Code Onset Dates Condition Status Problem Urinary incontinence, unspecified R32 Active type Problem Acute left-sided low back pain M54.5 Active without sciatica Problem Status post fall Z91.81 Active Problem Nocturia R35.1 Active Problem Hypertension, unspecified type I10 Active Problem Dizziness R42 Active Problem Varicose veins of both legs with I83.893 Active edema Problem Hyperlipidemia, unspecified E78.5 Active hyperlipidemia type Problem Shortness of breath R06.02 Active Problem Fatigue, unspecified type R53.83 Active Problem Chest pain, unspecified type R07.9 Active Problem Pain in right knee M25.561 Active Problem Other chronic pain G89.29 Active Problem Lymphoma C85.90 Active Problem Pain in left knee M25.562 Active Problem Hyperlipidemia E78.5 Active Problem Seasonal allergies J30.2 Active Problem Varicose veins I86.8 Active Problem Depression screening Z13.31 Active Problem Peripheral edema R60.9 Active Problem Myalgia M79.10 Active Problem 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
--- OUTSIDE RECORDS SUMMARY | 2019-04-08 09:04 | XMS REPORT ---
[...] unspecified J30.9 Active seasonality, unspecified trigger Medications Medication Code System Code Instructions Start Date End Date Status Dosage Cephalexin [facility] 03340093700 500 MG Orally Mar 20, Mar 27, Active 1 tablet every 12 hrs 2019 2019 Results No Known Results Summary Purpose eClinicalWorks Submission
[2019-04-08] MEDS ORDERED: HYDROCODONE/APAP 5/325 MG TAB ONE (09:41)
--- NOTE | 2019-04-08 11:13 | RAD REPORT ---
EXAM DESCRIPTION: US - Extremity Venous Uni Ltd - 04/08/2019 10:22 am CLINICAL HISTORY: PAIN Leg swelling and edema. COMPARISON: Extrem Venous W Compress Shai dated 12/17/2017 FINDINGS: Left lower extremity venous system was interrogated with Doppler technique. Normal flow, c ompressibility and augmentation was noted. There is no DVT present. IMPRESSION: No evidence of left lower extremity deep venous thrombosis.
[2019-04-08] MEDS ORDERED: dexAMETHasone 10 MG/ML VIAL ONE (11:41)
[2019-04-08] MEDS ORDERED: KETOROLAC 30 MG/ML INJ ONE (11:41)
--- NOTE | 2019-04-08 12:25 | EDPHYS ---
Physician Documentation [facility] Name: Celia Shaw Age: 83 yrs Sex: Female : 1935 Arrival Date: 04/08/2019 Time: 09:03 Bed 17 Private MD: ED Physician Fernando Holley HPI: 04/08 09:17 This 83 yrs old Black Female presents to ER via Unassigned with complaints of Leg Pain. rn 09:17 The patient presents with pain. rn 09:17 The complaints affect the posterior aspect of left knee. Onset: The symptoms/episode rn began/occurred at an unknown time. Modifying factors: The symptoms are alleviated by nothing. the symptoms are aggravated by movement, bending knee. Severity of symptoms: At their worst the symptoms were moderate, in the emergency department the symptoms are unchanged. The patient has experienced similar episodes in the past. reports chronic leg pain, and has been having mild pain behind left leg for "sometime", but worse this morning, reports "bad arthritis" with multiple scopes of knee, no recent trauma, no fever. + hx of dvt in 2011. . Historical: - Allergies: 09:24 NKA; ss - PMHx: 09:24 Hyperlipidemia; Hypertension; LYMPHOMA; PE; ss - Immunization history:: Adult Immunizations up to date. - Coronavirus screen:: The patient has NOT traveled to [place], [place], or [place] in the past 14 days. Proceed with normal triage process as indicated. - Family history:: not pertinent. - Social history:: Smoking status: Patient denies any tobacco usage or history of. - Hospitalizations: : No recent hospitalization is reported. - Ebola Screening: : Patient denies exposure to infectious person Patient denies travel to an Ebola-affected area in the 21 days before illness onset. ROS: 09:17 Constitutional: Negative for fever, chills, and weight loss, Cardiovascular: Negative rn for chest pain, palpitations, and edema, Respiratory: Negative for shortness of breath, cough, wheezing, and pleuritic chest pain, Abdomen/GI: Negative for abdominal pain, nausea, vomiting, diarrhea, and constipation, Back: Negative for injury and pain, MS/Extremity: + left leg pain behind left knee Skin: Negative for injury, rash, and discoloration, Neuro: Negative for headache, weakness, numbness, tingling, and seizure. Exam: 09:17 Constitutional: This is a well developed, well nourished patient who is awake, alert, rn and in no acute distress. Skin: Warm, dry with normal turgor. Normal color with no rashes, no lesions, and no evidence of cellulitis. MS/ Extremity: Pulses equal, no cyanosis. Neurovascular intact. + mild tenderness behind left knee, equal bilateral leg circumference of legs. No discoloration of skin. Neuro: Awake and alert, GCS 15 Vital Signs: 09:19 BP 125 / 76; Pulse 90; Resp 19; Temp 98.9(TE); Pulse Ox 97% on R/A; Weight 96.16 kg; ss Height 5 ft. 7 in. (170.18 cm); Pain 10/10; 10:10 BP 128 / 72; Pulse 87; Resp 16; Pulse Ox 97% ; bp 11:53 BP 132 / 69; Pulse 87; Resp 16; Pulse Ox 98% ; bp 12:31 BP 120 / 63; Pulse 85; Resp 16; Temp 98.5; Pulse Ox 97% ; bp 09:19 Body Mass Index 33.20 (96.16 kg, 170.18 cm) ss MDM: 09:04 Patient medically screened. rn 11:46 Differential diagnosis: DVT, bursitis, arthritis. Data reviewed: vital signs, nurses rn notes, radiologic studies, ultrasound, and as a result, I will discharge patient. Counseling: I had a detailed discussion with the patient and/or guardian regarding: the historical points, exam findings, and any diagnostic results supporting the discharge/admit diagnosis, radiology results, the need for outpatient follow up, to return to the emergency department if symptoms worsen or persist or if there are any questions or concerns that arise at home. Medical screen evaluation completed. [facility] emergency medical condition absent. Response to treatment: the patient's symptoms have mildly improved after treatment, and as a result, I will discharge patient. ED course: Reevaluated patient, still reports pain only to back of left knee, U/S neg for dvt, reports that has had chronic knee pain but got worse today, reeval does not show any erythema or warmth of knee, spoke with her about anti-inflammatories and return precautions. Friends requesting admission to hospital but no indication. Afebrile, and no signs of joint infection. Will give anti-inflammatories, wrap knee, and return precautions. . 12:23 ED course: Pt improved, states able to range leg better, will dc home.. rn 04/08 09:16 Order name: Extremity Venous Uni Ltd ; Complete Time: 11:16 rn 04/08 11:48 Order name: Misc. Order: wrap left knee with ROC wrap; Complete Time: 12:31 rn Administered Medications: 09:40 Drug: [place] 5 mg-325 mg 1 tabs Route: PO; bp 10:18 Follow up: Response: Pain is decreased bp 11:45 Drug: TORadol 30 mg Route: IM; Site: right gluteus; bp 12:31 Follow up: Response: Pain is decreased bp 11:45 Drug: Decadron 10 mg Route: IM; Site: right gluteus; bp 12:31 Follow up: Response: Pain is decreased bp Disposition: 04/08/19 12:24 Discharged to Home. Impression: Pain in left knee, Other bursitis, not elsewhere classified, unspecified knee, Osteoarthritis of knee. - Condition is Stable. - Discharge Instructions: Arthritis, Bursitis. - Prescriptions for Ibuprofen 600 mg Oral Tablet - take 1 tablet by ORAL route every 8 hours As needed take with food; 20 tablet. Tramadol 50 mg Oral Tablet - take 1 tablet by ORAL route every 8 hours as needed; 20 tablet. - Medication Reconciliation Form, Thank You Letter, Antibiotic Education, Prescription Opioid Use form. - Follow up: Private Physician; When: As needed; Reason: Recheck today's complaints, Re-evaluation by your physician. - Problem is new. - Symptoms have improved. Signatures: Dispatcher [employer] EDMS Fernando Holley MD MD rn Smirch, Shelby, RN RN ss Peltier, Brian, RN RN bp Corrections: (The following items were deleted from the chart) 12:47 12:24 04/08/2019 12:24 Discharged to Home. Impression: Pain in left knee; Other bp bursitis, not elsewhere classified, unspecified knee; Osteoarthritis of knee. Condition is Stable. Discharge Instructions: Arthritis, Bursitis. Prescriptions for Ibuprofen 600 mg Oral Tablet - take 1 tablet by ORAL route every 8 hours As needed take with food; 20 tablet, Tramadol 50 mg Oral Tablet - take 1 tablet by ORAL route every 8 hours as needed; 20 tablet. and Forms are Medication Reconciliation Form, Thank You Letter, Antibiotic Education, Prescription Opioid Use. Follow up: Private Physician; When: As needed; Reason: Recheck today's complaints, Re-evaluation by your physician. Problem is new. Symptoms have improved. rn
--- NOTE | 2019-04-08 12:25 | ER ---
Nurse's Notes [facility] Name: Celia Shaw Age: 83 yrs Sex: Female : 1935 Arrival Date: 04/08/2019 Time: 09:03 Bed 17 Private MD: Diagnosis: Pain in left knee;Other bursitis, not elsewhere classified, unspecified knee;Osteoarthritis of knee Presentation: 04/08 09:21 Presenting complaint: Patient states: Pain behind L knee that began at 0400 this AM. ss Transition of care: patient was not received from another setting of care. Onset of symptoms was April 08, 2019. Risk Assessment: Do you want to hurt yourself or someone else? Patient reports no desire to harm self or others. Initial Sepsis Screen: Does the patient meet any 2 criteria? No. Patient's initial sepsis screen is negative. Does the patient have a suspected source of infection? No. Patient's initial sepsis screen is negative. Care prior to arrival: None. 09:21 Acuity: MIKE 3 ss 09:21 Method Of Arrival: Wheelchair ss Triage Assessment: 09:20 General: Appears in no apparent distress. comfortable, Behavior is cooperative, bp appropriate for age, anxious. Pain: Complains of pain in posterior aspect of left knee. EENT: No deficits noted. Neuro: No deficits noted. Cardiovascular: No deficits noted. Respiratory: No deficits noted. GI: No signs and/or symptoms were reported involving the gastrointestinal system. : No signs and/or symptoms were reported regarding the genitourinary system. Derm: No deficits noted. Musculoskeletal: Reports pain in posterior aspect of left knee. Historical: - Allergies: 09:24 NKA; ss - PMHx: 09:24 Hyperlipidemia; Hypertension; LYMPHOMA; PE; ss - Immunization history:: Adult Immunizations up to date. - Coronavirus screen:: The patient has NOT traveled to [place], [place], or [place] in the past 14 days. Proceed with normal triage process as indicated. - Family history:: not pertinent. - Social history:: Smoking status: Patient denies any tobacco usage or history of. - Hospitalizations: : No recent hospitalization is reported. - Ebola Screening: : Patient denies exposure to infectious person Patient denies travel to an Ebola-affected area in the 21 days before illness onset. Screenin:20 Abuse screen: Denies threats or abuse. Denies injuries from another. Nutritional bp screening: No deficits noted. Tuberculosis screening: No symptoms or risk factors identified. Fall Risk None identified. Assessment: 09:20 General: SEE TRIAGE NOTE. bp 09:49 Reassessment: U/S PENDING FOR R/O DVT. bp 10:10 Reassessment: U/S AT B/S. bp 10:17 Reassessment: U/S COMPLETE, INITIAL IMPRESSION UNREMARKABLE. bp 11:54 Reassessment: ALL CURRENT ORDERS COMPLETED, DISPO PENDING. bp 12:31 Reassessment: PT D/C HOME VIA W/C WITH FAMILY, DX WITH LEFT KNEE BURSITIS. bp Vital Signs: 09:19 BP 125 / 76; Pulse 90; Resp 19; Temp 98.9(TE); Pulse Ox 97% on R/A; Weight 96.16 kg; ss Height 5 ft. 7 in. (170.18 cm); Pain 10/10; 10:10 BP 128 / 72; Pulse 87; Resp 16; Pulse Ox 97% ; bp 11:53 BP 132 / 69; Pulse 87; Resp 16; Pulse Ox 98% ; bp 12:31 BP 120 / 63; Pulse 85; Resp 16; Temp 98.5; Pulse Ox 97% ; bp 09:19 Body Mass Index 33.20 (96.16 kg, 170.18 cm) ss ED Course: 09:03 Patient arrived in ED. as 09:04 Fernando Holley MD is Attending Physician. rn 09:05 Norm Carnes, SHARON is Primary Nurse. bp 09:19 Arm band placed on right wrist. ss 09:20 Patient has correct armband on for positive identification. Bed in low position. Call bp light in reach. Side rails up X2. Adult w/ patient. 09:23 Triage completed. ss 10:22 Extremity Venous Uni Ltd US In Process Unspecified. EDMS 12:31 No provider procedures requiring assistance completed. Patient did not have IV access bp during this emergency room visit. Trent wrap to left knee. Administered Medications: 09:40 Drug: [place] 5 mg-325 mg 1 tabs Route: PO; bp 10:18 Follow up: Response: Pain is decreased bp 11:45 Drug: TORadol 30 mg Route: IM; Site: right gluteus; bp 12:31 Follow up: Response: Pain is decreased bp 11:45 Drug: Decadron 10 mg Route: IM; Site: right gluteus; bp 12:31 Follow up: Response: Pain is decreased bp Outcome: 12:24 Discharge ordered by . rn 12:31 Discharged to home via wheelchair, with family. bp 12:31 Condition: stable 12:31 Discharge instructions given to patient, family, Instructed on discharge instructions, follow up and referral plans. medication usage, Demonstrated understanding of instructions, follow-up care, medications, Prescriptions given X 2. 12:47 Patient left the ED. bp Signatures: Dispatcher [employer] Bianca Stover Roman, MD MD rn Sofia Delong RN RN ss Norm Carnes RN RN bp
[2019-04-08 13:03] VITALS: BP 120/63; TEMP 98.5; O2SAT 97
== END 2019-04-08 12:47 | disposition home or self-care (01) ==
LOC: ER 09:00
DX: M25.562 Pain in left knee (principal); M71.562 Other bursitis, not elsewhere classified, left knee; M17.12 Unilateral primary osteoarthritis, left knee
CPT/HCPCS: 93971; 96372; 99284; J1100

== ENCOUNTER 2024-01-09 10:25 | Emergency (ER) | payer OTHER ==
--- OUTSIDE RECORDS SUMMARY | 2024-01-09 10:31 | XMS REPORT | Continuity of Care Document ---
Author Name Unknown Address [address] [place] [address] [facility] thconnect Address [address] [place] [address] Care Team Providers Care Certified Appliance Service Technician Name Role Phone Lisbet Rawls Attending Clinician Unavailable Kaya Mcnally Attending Clinician Unavailable Lanie Tyson Attending Clinician Unavailable Selina Chirinos Attending Clinician Unavailable TRISTON Attending Clinician Unavailable [email or web address] Attending Clinician Unavaila ble TRISTON Admitting Clinician Unavailable [email or web address] Admitting Clinician Unavaila ble Payers Payer Name Policy Type Policy Number Effective Date Expirati on Date Source [facility] AARP MCR Advantage (HMO-POS) [id number] 2020 00:00:00 [facility] (MEDICARE REPLACEMENT/ADVA NTAGE - HMO) [id number] 2021 00:00:00 [facility] (PPO) [id number] 2021 00:00:00 Problems Condition Name Condition Details Condition Category Status Onset Date Resolution Date Last Treatment Date Treating Clinician Comments Source Myopia Myopia Problem Active 2023-02 00:00: 00 [facility] Regular astigmatis m Regular Astigmatis m Problem Active 2023-02 00:00: 00 [facility] Presbyopia Presbyopia Problem Active 2023-02 0 00:00: 00 [facility] 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 Problem Active 2023-02 0 00:00: 00 [facility] Urgent desire to urinate Urgent Desire to Urinate Problem Active 2023-02 0 00:00: 00 [facility] Urinary symptoms Urinary Symptoms Problem Active 9 00:00: 00 [facility] Acute urinary tract infection Acute Urinary Tract Infection Problem Active 10-23 00:00: 00 [facility] Essential hypertensi on Essential Hypertensi on Problem Active 10-11 00:00: 00 [facility] Microscopi c hematuria Microscopi c Hematuria Problem Active 10-11 00:00: 00 [facility] Bilateral pseudophak ia Bilateral Pseudophak ia Problem Active 6 00:00: 00 [facility] Hyperlipid emia Hyperlipid emia Problem Active 2021-02 0 00:00: 00 [facility] Cystoid macular edema Cystoid Macular Edema Problem Active 2021-02 0 00:00: 00 [facility] Essential hypertensi on Essential Hypertensi on Problem Active 2021-02 0 00:00: 00 [facility] Overactive urinary bladder Overactive Urinary Bladder Problem Active 07-13 00:00: 00 [facility] Increased frequency of urination Increased Frequency of Urination Problem Active 06-29 00:00: 00 [facility] Nocturia Nocturia Problem Active 06-29 00:00: 00 [facility] Non-Hodgki n's lymphoma (clinical) Non-Hodgki n's Lymphoma (Clinical) Problem Active 06-29 00:00: 00 [facility] Lateral cystocele Lateral Cystocele Problem Active 06-29 00:00: 00 [facility] Urinary incontinen ce Urinary Incontinen ce Problem Active 06-29 00:00: 00 [facility] [id number] Stage 3b chronic kidney disease (CKD) Problem [facility] [id number] History of malignant lymphoma Problem [facility] [id number] Varicose veins of both legs with edema Problem [facility] [id number] Hypertensi on, unspecifie d type Problem [facility] [id number] Primary osteoarthr itis of both knees Problem [facility] Pain in left knee Pain in left knee Problem [facility] [id number] Irregular heart beat Problem [facility] Seasonal allergy Seasonal allergies Problem [facility] [id number] Status post fall Problem [facility] [id number] Fatigue, unspecifie d type Problem [facility] [id number] Other chronic pain Problem [facility] Chronic renal failure syndrome Chronic kidney disease (CKD) Problem [facility] [id number] Screening for colon cancer Problem [facility] [id number] Myalgia Problem [facility] [id number] Pain in right knee Problem [facility] [id number] Dizziness Problem Comm on [facility] [id number] Obesity (BMI 30-39.9) Problem [facility] [id number] Neuropathy Problem Com [facility] [id number] 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 Ordering Clinician Indication Dosage Frequency Signature (SIG) Comments Components Source Solumedrol 125mg/2ml Solumedrol 125mg/2ml 1-16 00:00: 00 No 125mg [facility] moxifloxaci n 0.5 % eye drops moxifloxaci n 0.5 % eye drops No moxifloxac in 0.5 % eye drops [facility] nifedipine ER 60 mg tablet,exte nded release TAKE 1 TABLET BY MOUTH ONCE DAILY ON AN EMPTY STOMACH nifedipine ER 60 mg tablet,exte nded release TAKE 1 TABLET BY MOUTH ONCE DAILY ON AN EMPTY STOMACH No nifedipine ER 60 mg tablet,ext ended release TAKE 1 TABLET BY MOUTH ONCE DAILY ON AN EMPTY STOMACH [facility] potassium chloride ER 20 mEq tablet,exte nded release TAKE 1 TABLET BY MOUTH EVERY 2 DAYS NEEDED WITH FOOD. TAKE WITH FUROSEMIDE (LASIX) FOR 90 DAYS potassium chloride ER 20 mEq tablet,exte nded release TAKE 1 TABLET BY MOUTH EVERY 2 DAYS NEEDED WITH FOOD. TAKE WITH FUROSEMIDE (LASIX) FOR 90 DAYS No potassium chloride ER 20 mEq tablet,ext ended release TAKE 1 TABLET BY MOUTH EVERY 2 DAYS NEEDED WITH FOOD. TAKE WITH FUROSEMIDE (LASIX) FOR 90 DAYS [facility] prednisolon e acetate 1 % eye drops,suspe nsion INSTILL 1 DROP INTO AFFECTED EYE(S) BY OPHTHALMIC ROUTE 3 TIMES PER DAY prednisolon e acetate 1 % eye drops,suspe nsion INSTILL 1 DROP INTO AFFECTED EYE(S) BY OPHTHALMIC ROUTE 3 TIMES PER DAY No prednisolo ne acetate 1 % eye drops,susp ension INSTILL 1 DROP INTO AFFECTED EYE(S) BY OPHTHALMIC ROUTE 3 TIMES PER DAY [facility] h Program Procto-Med HC 2.5 % topical cream perineal applicator APPLY 1 APPLICATION TOPICALLY TO AFFECTED RECTAL AREA TWICE DAILY NEEDED FOR HEMORRHOID IRRITATION Procto-Med HC 2.5 % topical cream perineal applicator APPLY 1 APPLICATION TOPICALLY TO AFFECTED RECTAL AREA TWICE DAILY NEEDED FOR HEMORRHOID IRRITATION No Procto-Med HC 2.5 % topical cream perineal applicator APPLY 1 APPLICATIO N TOPICALLY TO AFFECTED RECTAL AREA TWICE DAILY NEEDED FOR HEMORRHOID IRRITATION [facility] simvastatin 40 mg tablet TAKE 1 TABLET BY MOUTH IN THE EVENING FOR 90 DAYS simvastatin 40 mg tablet TAKE 1 TABLET BY MOUTH IN THE EVENING FOR 90 DAYS No simvastati n 40 mg tablet TAKE 1 TABLET BY MOUTH IN THE EVENING FOR 90 DAYS [facility] tizanidine 2 mg tablet TAKE 1 TABLET BY MOUTH ONCE DAILY NEEDED FOR 30 DAYS tizanidine 2 mg tablet TAKE 1 TABLET BY MOUTH ONCE DAILY NEEDED FOR 30 DAYS No tizanidine 2 mg tablet TAKE 1 TABLET BY MOUTH ONCE DAILY NEEDED FOR 30 DAYS [facility] triamcinolo ne acetonide 0.1 % topical cream APPLY 1 APPLICATION TOPICALLY/ EXTERNALLY TO AFFECTED AREA TWICE DAILY NEEDED FOR ITCHING FOR 7 DAYS triamcinolo ne acetonide 0.1 % topical cream APPLY 1 APPLICATION TOPICALLY/ EXTERNALLY TO AFFECTED AREA TWICE DAILY NEEDED FOR ITCHING FOR 7 DAYS No triamcinol one acetonide 0.1 % topical cream APPLY 1 APPLICATIO N TOPICALLY/ EXTERNALLY TO AFFECTED AREA TWICE DAILY NEEDED FOR ITCHING FOR 7 DAYS [facility] trifluridin e 1 % eye drops INSTILL 1 DROP TO THE RIGHT EYE 4 TIMES DAILY FOR 7 DAYS THEN 1 DROP TWICE DAILY. IN STILL 1 DROP TO THE LEFT EYE TWICE DAILY FOR 7 DAYS THEN 1 DROP ONCE DAILY FOR 7 DAYS trifluridin e 1 % eye drops INSTILL 1 DROP TO THE RIGHT EYE 4 TIMES DAILY FOR 7 DAYS THEN 1 DROP TWICE DAILY. IN STILL 1 DROP TO THE LEFT EYE TWICE DAILY FOR 7 DAYS THEN 1 DROP ONCE DAILY FOR 7 DAYS No trifluridi ne 1 % eye drops INSTILL 1 DROP TO THE RIGHT EYE 4 TIMES DAILY FOR 7 DAYS THEN 1 DROP TWICE DAILY. IN STILL 1 DROP TO THE LEFT EYE TWICE DAILY FOR 7 DAYS THEN 1 DROP ONCE DAILY FOR [address] [facility] Program cetirizine 10 mg tablet TAKE 1 TABLET BY MOUTH ONCE DAILY FOR 90 DAYS cetirizine 10 mg tablet TAKE 1 TABLET BY MOUTH ONCE DAILY FOR 90 DAYS No cetirizine 10 mg tablet TAKE 1 TABLET BY MOUTH ONCE DAILY FOR 90 DAYS [facility] fluticasone propionate 50 mcg/actuati on nasal spray,suspe nsion USE 2 SPRAY(S) IN EACH NOSTRIL ONCE DAILY FOR 30 DAYS fluticasone propionate 50 mcg/actuati on nasal spray,suspe nsion USE 2 SPRAY(S) IN EACH NOSTRIL ONCE DAILY FOR 30 DAYS No fluticason e propionate 50 mcg/actuat ion nasal spray,susp ension USE 2 SPRAY(S) IN EACH NOSTRIL ONCE DAILY FOR 30 DAYS [facility] furosemide 20 mg tablet TAKE 1 TABLET BY MOUTH IN THE MORNING EVERY 2 DAYS NEEDED FOR LEG SWELLING TAKE WITH POTASSIUM furosemide 20 mg tablet TAKE 1 TABLET BY MOUTH IN THE MORNING EVERY 2 DAYS NEEDED FOR LEG SWELLING TAKE WITH POTASSIUM No furosemide 20 mg tablet TAKE 1 TABLET BY MOUTH IN THE MORNING EVERY 2 DAYS NEEDED FOR LEG SWELLING TAKE WITH POTASSIUM [facility] Klor-Con M20 mEq tablet,exte nded release Klor-Con M20 mEq tablet,exte nded release No Klor-Con M20 mEq tablet,ext ended release [facility] meclizine 25 mg tablet TAKE 1 TABLET BY MOUTH TWICE DAILY NEEDED FOR DIZZINESS meclizine 25 mg tablet TAKE 1 TABLET BY MOUTH TWICE DAILY NEEDED FOR DIZZINESS No meclizine 25 mg tablet TAKE 1 TABLET BY MOUTH TWICE DAILY NEEDED FOR DIZZINESS [facility] meloxicam 7.5 mg tablet TAKE 1 TABLET BY MOUTH ONCE DAILY NEEDED FOR PAIN meloxicam 7.5 mg tablet TAKE 1 TABLET BY MOUTH ONCE DAILY NEEDED FOR PAIN No meloxicam 7.5 mg tablet TAKE 1 TABLET BY MOUTH ONCE DAILY NEEDED FOR PAIN [facility] carvedilol 6.25 mg tablet TAKE 1 TABLET BY MOUTH TWICE DAILY WITH FOOD carvedilol 6.25 mg tablet TAKE 1 TABLET BY MOUTH TWICE DAILY WITH FOOD No carvedilol 6.25 mg tablet TAKE 1 TABLET BY MOUTH TWICE DAILY WITH FOOD [facility] gabapentin 100 mg capsule TAKE 1 CAPSULE BY MOUTH ONCE DAILY gabapentin 100 mg capsule TAKE 1 CAPSULE BY MOUTH ONCE DAILY No gabapentin 100 mg capsule TAKE 1 CAPSULE BY MOUTH ONCE DAILY [facility] Myrbetriq 50 mg tablet,exte nded release TAKE 1 TABLET BY MOUTH ONCE DAILY WITH MEALS FOR 30 DAYS Myrbetriq 50 mg tablet,exte nded release TAKE 1 TABLET BY MOUTH ONCE DAILY WITH MEALS FOR 30 DAYS No Myrbetriq 50 mg tablet,ext ended release TAKE 1 TABLET BY MOUTH ONCE DAILY WITH MEALS FOR 30 DAYS [facility] oxybutynin chloride ER 10 mg tablet,exte nded release 24 hr TAKE 1 TABLET BY MOUTH ONCE DAILY FOR 90 DAYS oxybutynin chloride ER 10 mg tablet,exte nded release 24 hr TAKE 1 TABLET BY MOUTH ONCE DAILY FOR 90 DAYS No oxybutynin chloride ER 10 mg tablet,ext ended release 24 hr TAKE 1 TABLET BY MOUTH ONCE DAILY FOR 90 DAYS [facility]ab[facility] 300 mg capsule TAKE 1 CAPSULE BY MOUTH TWICE DAILY FOR 30 DAYS gabapentin 300 mg capsule TAKE 1 CAPSULE BY MOUTH TWICE DAILY FOR 30 DAYS No gabapentin 300 mg capsule TAKE 1 CAPSULE BY MOUTH TWICE DAILY FOR 30 DAYS [facility] ketorolac 0.5 % eye drops INSTILL 1 DROP INTO AFFECTED EYE(S) BY OPHTHALMIC ROUTE 4 TIMES PER DAY ketorolac 0.5 % eye drops INSTILL 1 DROP INTO AFFECTED EYE(S) BY OPHTHALMIC ROUTE 4 TIMES PER DAY No ketorolac 0.5 % eye drops INSTILL 1 DROP INTO AFFECTED EYE(S) BY OPHTHALMIC ROUTE 4 TIMES PER DAY [facility] nitrofurant oin monohydrate /macrocryst als 100 mg capsule TAKE 1 CAPSULE BY MOUTH EVERY 12 HOURS FOR 7 DAYS nitrofurant oin monohydrate /macrocryst als 100 mg capsule TAKE 1 CAPSULE BY MOUTH EVERY 12 HOURS FOR 7 DAYS No nitrofuran toin monohydrat e/macrocry stals 100 mg capsule TAKE 1 CAPSULE BY MOUTH EVERY 12 HOURS FOR 7 DAYS [facility] tobramycin 0.3 %-dexametha sone 0.1 % eye drops,suspe nsion INSTILL 1 DROP INTO AFFECTED EYE(S) EVERY 6 HOURS FOR 2 WEEKS THEN INSTLL 1 DROP TWICE DAILY FOR 1 WEEK tobramycin 0.3 %-dexametha sone 0.1 % eye drops,suspe nsion INSTILL 1 DROP INTO AFFECTED EYE(S) EVERY 6 HOURS FOR 2 WEEKS THEN INSTLL 1 DROP TWICE DAILY FOR 1 WEEK No tobramycin 0.3 %-dexameth asone 0.1 % eye drops,susp ension INSTILL 1 DROP INTO AFFECTED EYE(S) EVERY 6 HOURS FOR 2 WEEKS THEN INSTLL 1 DROP TWICE DAILY FOR 1 WEEK [facility] Alive Calcium-Vit carrasquillo D3 Alive Calcium-Vit carrasquillo D3 No Alive Calcium-Vi tamin D3 [facility] carvedilol 6.25 mg tablet Take 1 tablet twice a day by oral route. carvedilol 6.25 mg tablet Take 1 tablet twice a day by oral route. No 1 BID carvedilol 6.25 mg tablet Take 1 tablet twice a day by oral route. [facility] cranberry 500 mg capsule Take by oral route. cranberry 500 mg capsule Take by oral route. No cranberry 500 mg capsule Take by [facility] route. [facility] furosemide 20 mg tablet Take 1 tablet every day by oral route. furosemide 20 mg tablet Take 1 tablet every day by oral route. No 1 Q1D furosemide 20 mg tablet Take 1 tablet every day by oral route. [facility] Myrbetriq 50 mg tablet,exte nded release Take 1 tablet every day by oral route with meal(s) for 30 days. Myrbetriq 50 mg tablet,exte nded release Take 1 tablet every day by oral route with meal(s) for 30 days. No 1 Q1D Myrbetriq 50 mg tablet,ext ended release Take 1 tablet every day by oral route with meal(s) for 30 days. [facility] nifedipine ER 60 mg tablet,exte nded release Take 1 tablet every day by oral route. nifedipine ER 60 mg tablet,exte nded release Take 1 tablet every day by oral route. No 1 Q1D nifedipine ER 60 mg tablet,ext ended release Take 1 tablet every day by oral route. [facility] potassium bicarbonate -citric acid 20 mEq effervescen t tablet Take 1 tablet 4 times a day by oral route. potassium bicarbonate -citric acid 20 mEq effervescen t tablet Take 1 tablet 4 times a day by oral route. No 1 QID potassium bicarbonat e-citric acid 20 mEq effervesce nt tablet Take 1 tablet 4 times a day by oral route. [facility] prednisolon e 1 %-moxifloxa ludin 0.5 % eye drops,suspe nsion prednisolon e 1 %-moxifloxa ludin 0.5 % eye drops,suspe nsion No prednisolo ne 1 %-moxiflox acin 0.5 % eye drops,susp ension [facility] simvastatin 40 mg tablet Take 1 tablet every day by oral route. simvastatin 40 mg tablet Take 1 tablet every day by oral route. No 1 Q1D simvastati n 40 mg tablet Take 1 tablet every day by oral route. [facility] Vitamin C 100 mg tablet Take by oral route. Vitamin C 100 mg tablet Take by oral route. No Vitamin C 100 mg tablet Take by oral route. [facility] fosfomycin tromethamin e 3 gram oral packet Take 1 packet by oral route as directed for 1 day. fosfomycin tromethamin e 3 gram oral packet Take 1 packet by oral route as directed for 1 day. No 1packet (s) fosfomycin tromethami ne 3 gram oral packet Take 1 packet by oral route as directed for 1 day. [facility] Macrobid 100 mg capsule Take 1 capsule every 12 hours by oral route for 7 days. Macrobid 100 mg capsule Take 1 capsule every 12 hours by oral route for 7 days. No 1capsul e(s) Q12H Macrobid 100 mg capsule Take 1 capsule every 12 hours by oral route for 7 days. [facility] Carvedilol 3.125 MG Carvedilol 3.125 MG No 1{table t_with_ food} BID Carvedilol 3.125 MG Calcium Calcium No QD Calcium NIFEdipine ER 60 MG NIFEdipine ER 60 MG No 1{table t_on_an _empty_ stomach } QD NIFEdipine ER 60 MG Furosemide 20 MG Furosemide 20 MG No Furosemide 20 MG Potassium Chloride ER 20 MEQ Potassium Chloride ER 20 MEQ No QD Potassium Chloride ER 20 MEQ Simvastatin 40 MG Simvastatin 40 MG No 1{table t_in_th e_eveni ng} QD Simvastati n 40 MG Cranberry 500 MG Cranberry 500 MG No Cranberry 500 MG Gabapentin 300 MG Gabapentin 300 MG No 1{capsu le} BID Gabapentin 300 MG Immunizations Ordered Immunization Name Filled Immunization Name Date Status Comments Source Pfizer COVID-19 Vaccine Pfizer COVID-19 Vaccine 2020-11-26 11:39:00 Completed [facility] Pfizer COVID-19 Vaccine Pfizer COVID-19 Vaccine 2020-11-26 11:39:00 Completed [facility] Pfizer COVID-19 Vaccine Pfizer COVID-19 Vaccine 2020-11-26 11:39:00 Completed [facility] Pfizer COVID-19 Vaccine Pfizer COVID-19 Vaccine 2020-11-26 11:39:00 Completed [facility] Pfizer COVID-19 Vaccine Pfizer COVID-19 Vaccine 2020-11-26 11:39:00 Completed [facility] Pfizer COVID-19 Vaccine Pfizer COVID-19 Vaccine 2020-04-29 11:39:00 Completed [facility] Pfizer COVID-19 Vaccine Pfizer COVID-19 Vaccine 2020-04-29 11:39:00 Completed [facility] Pfizer COVID-19 Vaccine Pfizer COVID-19 Vaccine 2020-04-29 11:39:00 Completed [facility] Pfizer COVID-19 Vaccine Pfizer COVID-19 Vaccine 2020-04-29 11:39:00 Completed [facility] Pfizer COVID-19 Vaccine Pfizer COVID-19 Vaccine 2020-04-29 11:39:00 Completed [facility] Pfizer COVID-19 Vaccine Pfizer COVID-19 Vaccine 2020-04-08 11:38:00 Completed [facility] Pfizer COVID-19 Vaccine Pfizer COVID-19 Vaccine 2020-04-08 11:38:00 Completed [facility] Pfizer COVID-19 Vaccine Pfizer COVID-19 Vaccine 2020-04-08 11:38:00 Completed [facility] Pfizer COVID-19 Vaccine Pfizer COVID-19 Vaccine 2020-04-08 11:38:00 Completed [facility] Pfizer COVID-19 Vaccine Pfizer COVID-19 Vaccine 2020-04-08 11:38:00 Completed [facility] Adacel (Tdap) Adacel (Tdap) 2020-01-07 13:12:00 Completed [facility] Adacel (Tdap) Adacel (Tdap) 2020-01-07 13:12:00 Completed [facility] Adacel (Tdap) Adacel (Tdap) 2020-01-07 13:12:00 Completed [facility] Adacel (Tdap) Adacel (Tdap) 2020-01-07 13:12:00 Completed [facility] Adacel (Tdap) Adacel (Tdap) 2020-01-07 13:12:00 Completed [facility] Shingrix Shingrix 2020-01-07 13:10:00 Completed [facility] Shingrix Shingrix 2020-01-07 13:10:00 Completed [facility] Shingrix Shingrix 2020-01-07 13:10:00 Completed [facility] Shingrix Shingrix 2020-01-07 13:10:00 Completed [facility] Shingrix Shingrix 2020-01-07 13:10:00 Completed [facility] Fluzone Fluzone 2019-11-29 11:37:00 Completed [facility] Fluzone Fluzone 2019-11-29 11:37:00 Completed [facility] Fluzone Fluzone 2019-11-29 11:37:00 Completed [facility] Fluzone Fluzone 2019-11-29 11:37:00 Completed [facility] Fluzone Fluzone 2019-11-29 11:37:00 Completed [facility] Solumedrol 125mg/2ml Solumedrol 125mg/2ml 2019-03-15 12:45:00 Completed [facility] FLUZONE HIGH DOSE OVER 65 FLUZONE HIGH DOSE OVER 65 2019-01-02 12:54:00 Completed [facility] FLUZONE HIGH DOSE OVER 65 FLUZONE HIGH DOSE OVER 65 2019-01-02 12:54:00 Completed [facility] FLUZONE HIGH DOSE OVER 65 FLUZONE HIGH DOSE OVER 65 2019-01-02 12:54:00 Completed [facility] FLUZONE HIGH DOSE OVER 65 FLUZONE HIGH DOSE OVER 65 2019-01-02 12:54:00 Completed [facility] FLUZONE HIGH DOSE OVER 65 FLUZONE HIGH DOSE OVER 65 2019-01-02 12:54:00 Completed [facility] Prevnar 13 (PCV13) Prevnar 13 (PCV13) 2018-02-28 11:38:00 Completed [facility] Prevnar 13 (PCV13) Prevnar 13 (PCV13) 2018-02-28 11:38:00 Completed [facility] Prevnar 13 (PCV13) Prevnar 13 (PCV13) 2018-02-28 11:38:00 Completed [facility] Prevnar 13 (PCV13) Prevnar 13 (PCV13) 2018-02-28 11:38:00 Completed [facility] Prevnar 13 (PCV13) Prevnar 13 (PCV13) 2018-02-28 11:38:00 Completed [facility] COVID-19, mRNA, LNP-S, PF, 30 mcg/0.3 mL dose, abdon-sucrose (Pfizer-BioNTech) - ML COVID-19, mRNA, LNP-S, PF, 30 mcg/0.3 mL dose, abdon-sucrose (Pfizer-BioNTech) - ML Unknown [facility]-19, mRNA, LNP-S, PF, 30 mcg/0.3 mL dose (Pfizer-BioNTech) - ML COVID-19, mRNA, LNP-S, PF, 30 mcg/0.3 mL dose (Pfizer-BioNTech) - ML Unknown [facility] Pfizer COVID-19 Vaccine Pfizer COVID-19 Vaccine Unknown Completed [facility] Shingrix Shingrix Unknown Completed [facility] Fluzone Fluzone Unknown Completed [facility] rit [facility] FLUZONE HIGH DOSE OVER 65 FLUZONE HIGH DOSE OVER 65 Unknown Completed [facility] Adacel (Tdap) Adacel (Tdap) Unknown Completed [facility] Prevnar 13 (PCV13) Prevnar 13 (PCV13) Unknown Completed [facility] Pfizer COVID-19 Vaccine Pfizer COVID-19 Vaccine Unknown Completed [facility] Shingrix Shingrix Unknown Completed [facility] Fluzone Fluzone Unknown Completed [facility] FLUZONE HIGH DOSE OVER 65 FLUZONE HIGH DOSE OVER 65 Unknown Completed [facility] Adacel (Tdap) Adacel (Tdap) Unknown Completed [facility] Prevnar 13 (PCV13) Prevnar 13 (PCV13) Unknown Completed [facility] Pfizer COVID-19 Vaccine Pfizer COVID-19 Vaccine Unknown Completed [facility] Shingrix Shingrix Unknown Completed [facility] Fluzone Fluzone Unknown Completed [facility] FLUZONE HIGH DOSE OVER 65 FLUZONE HIGH DOSE OVER 65 Unknown Completed [facility] Adacel (Tdap) Adacel (Tdap) Unknown Completed [facility] Prevnar 13 (PCV13) Prevnar 13 (PCV13) Unknown Completed [facility] Pfizer COVID-19 Vaccine Pfizer COVID-19 Vaccine Unknown Completed [facility] Shingrix Shingrix Unknown Completed [facility] Fluzone Fluzone Unknown Completed [facility] FLUZONE HIGH DOSE OVER 65 FLUZONE HIGH DOSE OVER 65 Unknown Completed [facility] Adacel (Tdap) Adacel (Tdap) Unknown Completed [facility] Prevnar 13 (PCV13) Prevnar 13 (PCV13) Unknown Completed [facility] Pfizer COVID-19 Vaccine Pfizer COVID-19 Vaccine Unknown Completed [facility] Shingrix Shingrix Unknown Completed [facility] Fluzone Fluzone Unknown Completed [facility] FLUZONE HIGH DOSE OVER 65 FLUZONE HIGH DOSE OVER 65 Unknown Completed [facility] Adacel (Tdap) Adacel (Tdap) Unknown Completed [facility] Prevnar 13 (PCV13) Prevnar 13 (PCV13) Unknown Completed [facility] Pfizer COVID-19 Vaccine Pfizer COVID-19 Vaccine Unknown Completed [facility] Shingrix Shingrix Unknown Completed [facility] Fluzone Fluzone Unknown Completed [facility] FLUZONE HIGH DOSE OVER 65 FLUZONE HIGH DOSE OVER 65 Unknown Completed [facility] Adacel (Tdap) Adacel (Tdap) Unknown Completed [facility] Prevnar 13 (PCV13) Prevnar 13 (PCV13) Unknown Completed [facility] Pfizer COVID-19 Vaccine Pfizer COVID-19 Vaccine Unknown Completed [facility] Shingrix Shingrix Unknown Completed [facility] Fluzone Fluzone Unknown Completed [facility] FLUZONE HIGH DOSE OVER 65 FLUZONE HIGH DOSE OVER 65 Unknown Completed [facility] Adacel (Tdap) Adacel (Tdap) Unknown Completed [facility] Prevnar 13 (PCV13) Prevnar 13 (PCV13) Unknown Completed [facility] Pfizer COVID-19 Vaccine Pfizer COVID-19 Vaccine Unknown Completed [facility] Shingrix Shingrix Unknown Completed [facility] Fluzone Fluzone Unknown Completed [facility] FLUZONE HIGH DOSE OVER 65 FLUZONE HIGH DOSE OVER 65 Unknown Completed [facility] Adacel (Tdap) Adacel (Tdap) Unknown Completed [facility] Prevnar 13 (PCV13) Prevnar 13 (PCV13) Unknown Completed [facility] Pfizer COVID-19 Vaccine Pfizer COVID-19 Vaccine Unknown Completed [facility] Shingrix Shingrix Unknown Completed [facility] Fluzone Fluzone Unknown Completed [facility] FLUZONE HIGH DOSE OVER 65 FLUZONE HIGH DOSE OVER 65 Unknown Completed [facility] Adacel (Tdap) Adacel (Tdap) Unknown Completed [facility] Prevnar 13 (PCV13) Prevnar 13 (PCV13) Unknown Completed [facility] Pfizer COVID-19 Vaccine Pfizer COVID-19 Vaccine Unknown Completed [facility] Shingrix Shingrix Unknown Completed [facility] Fluzone Fluzone Unknown Completed [facility] FLUZONE HIGH DOSE OVER 65 FLUZONE HIGH DOSE OVER 65 Unknown Completed [facility] Adacel (Tdap) Adacel (Tdap) Unknown Completed [facility] Prevnar 13 (PCV13) Prevnar 13 (PCV13) Unknown Completed [facility] Pfizer COVID-19 Vaccine Pfizer COVID-19 Vaccine Unknown Completed [facility] Shingrix Shingrix Unknown Completed [facility] Fluzone Fluzone Unknown Completed [facility] FLUZONE HIGH DOSE OVER 65 FLUZONE HIGH DOSE OVER 65 Unknown Completed [facility] Adacel (Tdap) Adacel (Tdap) Unknown Completed [facility] Prevnar 13 (PCV13) Prevnar 13 (PCV13) Unknown Completed [facility] Pfizer COVID-19 Vaccine Pfizer COVID-19 Vaccine Unknown Completed [facility] Shingrix Shingrix Unknown Completed [facility] Fluzone Fluzone Unknown Completed [facility] FLUZONE HIGH DOSE OVER 65 FLUZONE HIGH DOSE OVER 65 Unknown Completed [facility] Adacel (Tdap) Adacel (Tdap) Unknown Completed [facility] Prevnar 13 (PCV13) Prevnar 13 (PCV13) Unknown Completed [facility] Fluad (IIV) - SDS - 0.5mL Fluad (IIV) - SDS - 0.5mL Unknown Completed [facility] Vital Signs Vital Name Observation Time Observation Value Comments S monsterce height 2023-12-20 13:20:00 64.25 [in_i] Com mon [facility] weight 2023-12-20 13:20:00 196 [lb_av] Comm on [facility] temperature 2023-12-20 13:20:00 97.1 [degF] Com [facility] bmi 2023-12-20 13:20:00 33.38 kg/m2 Comm on [facility] oximetry 2023-12-20 13:20:00 96 % Commo n [facility] respiratory rate 2023-12-20 13:20:00 16 /min Common [facility] blood pressure systolic 2023-12-20 13:20:00 134 mm[Hg] [facility] blood pressure diastolic 2023-12-20 13:20:00 82 mm[Hg] [facility] Height 2023-12-20 00:00:00 65 [in_i] [facility] BP Diastolic 2023-12-20 00:00:00 82 mm[Hg] [facility] BMI (Body Mass Index) 2023-12-20 00:00:00 30.8 [facility] 2023-12-20 00:00:00 185.2 [lb_av] [facility] BP Systolic 2023-12-20 00:00:00 123 mm[Hg] [facility] height 2023-11-22 15:00:00 64.25 [in_i] Com [facility] weight 2023-11-22 15:00:00 187 [lb_av] Comm on [facility] temperature 2023-11-22 15:00:00 97.1 [degF] Com [facility] bmi 2023-11-22 15:00:00 31.85 kg/m2 Comm on [facility] oximetry 2023-11-22 15:00:00 96 % Commo n [facility] respiratory rate 2023-11-22 15:00:00 16 /min [facility] blood pressure systolic 2023-11-22 15:00:00 136 mm[Hg] [facility] blood pressure diastolic 2023-11-22 15:00:00 74 mm[Hg] [facility] BMI (Body Mass Index) 2023-10-12 00:00:00 30.8 kg/m2 [facility] BP Diastolic 2023-10-12 00:00:00 73 mm[Hg] [facility] Body Weight 2023-10-12 00:00:00 185.2 [lb_av] [facility] BP Systolic 2023-10-12 00:00:00 137 mm[Hg] [facility] Height 2023-10-12 00:00:00 65 [in_i] [facility] height 2023-09-12 13:40:00 64.25 [in_i] Com [facility] weight 2023-09-12 13:40:00 185.6 [lb_av] Co mmon [facility] temperature 2023-09-12 13:40:00 97.3 [degF] Com [facility] bmi 2023-09-12 13:40:00 31.61 kg/m2 Comm on [facility] oximetry 2023-09-12 13:40:00 96 % Commo n [facility] respiratory rate 2023-09-12 13:40:00 16 /min [facility] blood pressure systolic 2023-09-12 13:40:00 134 mm[Hg] [facility] blood pressure diastolic 2023-09-12 13:40:00 70 mm[Hg] [facility] height 2023-06-03 14:20:00 64.25 [in_i] Com [facility] weight 2023-06-03 14:20:00 182 [lb_av] Comm on [facility] temperature 2023-06-03 14:20:00 97.4 [degF] Com [facility] bmi 2023-06-03 14:20:00 30.99 kg/m2 Comm on [facility] oximetry 2023-06-03 14:20:00 95 % Commo n [facility] respiratory rate 2023-06-03 14:20:00 16 /min [facility] blood pressure systolic 2023-06-03 14:20:00 138 mm[Hg] [facility] blood pressure diastolic 2023-06-03 14:20:00 76 mm[Hg] [facility] height 2023-03-02 13:40:00 64.25 [in_i] Com [facility] weight 2023-03-02 13:40:00 180 [lb_av] Comm on [facility] temperature 2023-03-02 13:40:00 97.0 [degF] Com [facility] bmi 2023-03-02 13:40:00 30.65 kg/m2 Comm on [facility] oximetry 2023-03-02 13:40:00 97 % Commo n [facility] respiratory rate 2023-03-02 13:40:00 16 /min [facility] blood pressure systolic 2023-03-02 13:40:00 138 mm[Hg] Common [facility] blood pressure diastolic 2023-03-02 13:40:00 82 mm[Hg] [facility] height 2023-03-02 13:00:00 64.25 [in_i] Com [facility] weight 2023-03-02 13:00:00 180 [lb_av] Comm on [facility] temperature 2023-03-02 13:00:00 97.0 [degF] Com [facility] bmi 2023-03-02 13:00:00 30.65 kg/m2 Comm on [facility] oximetry 2023-03-02 13:00:00 97 % Commo n [facility] respiratory rate 2023-03-02 13:00:00 16 /min [facility] blood pressure systolic 2023-03-02 13:00:00 138 mm[Hg] [facility] blood pressure diastolic 2023-03-02 13:00:00 82 mm[Hg] [facility] height 2023-01-11 10:00:00 64.25 [in_i] Com [facility] weight 2023-01-11 10:00:00 181.8 [lb_av] Co mmon [facility] temperature 2023-01-11 10:00:00 97.9 [degF] Com [facility] bmi 2023-01-11 10:00:00 30.96 kg/m2 Comm on [facility] oximetry 2023-01-11 10:00:00 96 % Commo n [facility] respiratory rate 2023-01-11 10:00:00 16 /min [facility] blood pressure systolic 2023-01-11 10:00:00 126 mm[Hg] [facility] blood pressure diastolic 2023-01-11 10:00:00 70 mm[Hg] [facility] height 2022-10-08 10:20:00 64.25 [in_i] Com [facility] weight 2022-10-08 10:20:00 179 [lb_av] Comm on [facility] temperature 2022-10-08 10:20:00 97.5 [degF] Com [facility] bmi 2022-10-08 10:20:00 30.48 kg/m2 Comm on [facility] oximetry 2022-10-08 10:20:00 97 % Commo n [facility] respiratory rate 2022-10-08 10:20:00 16 /min [facility] blood pressure systolic 2022-10-08 10:20:00 132 mm[Hg] [facility] blood pressure diastolic 2022-10-08 10:20:00 70 mm[Hg] [facility] height 2022-07-05 14:00:00 64.25 [in_i] Com [facility] weight 2022-07-05 14:00:00 186.8 [lb_av] Co [facility] temperature 2022-07-05 14:00:00 98.0 [degF] Com [facility] bmi 2022-07-05 14:00:00 31.81 kg/m2 Comm on [facility] oximetry 2022-07-05 14:00:00 95 % Commo n [facility] respiratory rate 2022-07-05 14:00:00 16 /min [facility] blood pressure systolic 2022-07-05 14:00:00 138 mm[Hg] [facility] blood pressure diastolic 2022-07-05 14:00:00 82 mm[Hg] [facility] height 2022-07-05 13:20:00 64.25 [in_i] Com [facility] weight 2022-07-05 13:20:00 186.8 [lb_av] Co [facility] temperature 2022-07-05 13:20:00 98.0 [degF] Com [facility] bmi 2022-07-05 13:20:00 31.81 kg/m2 Comm on [facility] oximetry 2022-07-05 13:20:00 95 % Commo n [facility] respiratory rate 2022-07-05 13:20:00 16 /min [facility] blood pressure systolic 2022-07-05 13:20:00 138 mm[Hg] Common [facility] blood pressure diastolic 2022-07-05 13:20:00 82 mm[Hg] [facility] height 2021-07-16 13:00:00 64.25 [in_i] Com [facility] weight 2021-07-16 13:00:00 187.4 [lb_av] Co mmon [facility] temperature 2021-07-16 13:00:00 97.6 [degF] Com [facility] bmi 2021-07-16 13:00:00 31.91 kg/m2 Comm on [facility] oximetry 2021-07-16 13:00:00 98 % Commo n [facility] respiratory rate 2021-07-16 13:00:00 16 /min [facility] blood pressure systolic 2021-07-16 13:00:00 139 mm[Hg] [facility] blood pressure diastolic 2021-07-16 13:00:00 69 mm[Hg] [facility] height 2021-07-16 13:00:00 64.25 [in_i] Com [facility] weight 2021-07-16 13:00:00 187.4 [lb_av] Co [facility] temperature 2021-07-16 13:00:00 97.6 [degF] Com [facility] bmi 2021-07-16 13:00:00 31.91 kg/m2 Comm on [facility] oximetry 2021-07-16 13:00:00 98 % Commo n [facility] respiratory rate 2021-07-16 13:00:00 16 /min [facility] blood pressure systolic 2021-07-16 13:00:00 139 mm[Hg] Common [facility] blood pressure diastolic 2021-07-16 13:00:00 69 mm[Hg] [facility] height 2021-04-10 11:00:00 64.25 [in_i] Com [facility] weight 2021-04-10 11:00:00 195.0 [lb_av] Co [facility] temperature 2021-04-10 11:00:00 97.6 [degF] Com [facility] bmi 2021-04-10 11:00:00 33.21 kg/m2 Comm on [facility] oximetry 2021-04-10 11:00:00 100 % Commo n [facility] respiratory rate 2021-04-10 11:00:00 16 /min [facility] blood pressure systolic 2021-04-10 11:00:00 130 mm[Hg] [facility] blood pressure diastolic 2021-04-10 11:00:00 70 mm[Hg] [facility] blood pressure diastolic 2020-12-02 11:00:00 79 mm[Hg] [facility] height 2020-12-02 11:00:00 64.25 [in_i] Com [facility] weight 2020-12-02 11:00:00 197.8 [lb_av] Co mmon [facility] temperature 2020-12-02 11:00:00 97.0 [degF] Com [facility] bmi 2020-12-02 11:00:00 33.68 kg/m2 Comm on [facility] oximetry 2020-12-02 11:00:00 95 % Commo n [facility] respiratory rate 2020-12-02 11:00:00 18 /min [facility] blood pressure systolic 2020-12-02 11:00:00 138 mm[Hg] [facility] height 2020-12-02 11:40:00 64.25 [in_i] Com [facility] weight 2020-12-02 11:40:00 197.8 [lb_av] Co mmon [facility] temperature 2020-12-02 11:40:00 97 [degF] Comm on [facility] bmi 2020-12-02 11:40:00 33.68 kg/m2 Comm on [facility] oximetry 2020-12-02 11:40:00 95 % Commo n [facility] blood pressure systolic 2020-12-02 11:40:00 138 mm[Hg] [facility] blood pressure diastolic 2020-12-02 11:40:00 79 mm[Hg] [facility] Procedures Procedure Date / Time Performed Performing Clinicia n Source Hysterectomy - Abdominal 1960-02-28 00:00:00 [facility] Repair of Urinary Bladder 1960-02-28 00:00:00 [facility] Procedure on Wrist [facility] Curettage [facility] Append[facility] Encounters Start Date/Time End Date/Time Encounter Type Admission Type Attending [facility] Care Facility Care Department Encounter ID Source 2023-09-08 15:12:00 Outpatient Lisbet Rawls [facility] [id number] [facility] 2022-10-19 10:38:00 Outpatient RawlsLisbet ST[facility] [id number] [facility] 2022-05-06 13:28:00 Outpatient Lisbet Rawls [facility] [id number] [facility] 2022-02-11 08:59:01 Outpatient Uli Na [facility] ST[facility] [id number] [facility] 2021-10-14 10:45:01 Outpatient Kaya Mcnally STLMLC STLMLC [id number] [facility] 2021-04-09 10:53:01 Outpatient Uli Na STLMLC STLMLC [id number] [facility] 2021-03-25 13:55:40 Outpatient Uli Na STLMLC STLMLC [id number] [facility] 2021-03-25 13:35:13 Outpatient Uli Na STLMLC STLMLC [id number] [facility] 2021-03-25 13:12:47 [facility] [id number] [facility] 2021-03-25 13:05:13 Outpatient [facility] [id number] [facility] 2021-03-25 12:36:44 Outpatient Lanie Tyson [facility]EN [facility] [id number] [facility] 2021-03-25 12:35:34 Outpatient [facility] [id number] [facility] 2021-03-25 12:03:14 Outpatient [facility] [id number] [facility] 2021-03-25 12:03:00 Outpatient Lanie Tyson STISRAEL [facility] [id number] [facility] 2021-03-25 12:02:32 Outpatient L[facility] [id number] [facility] 2021-03-25 11:31:16 Outpatient Selina ChirinosISRAEL [facility] [id number] [facility] 2021-03-25 11:01:08 Outpatient [facility] [id number] [facility] 2023-12-27 00:00:00 2023-12-27 00:00:00 Mireya Melendez MD: [address] , [place] [address] , Ph. [facility] Jain [facility] Eye Clinic [id number] [facility]9 [facility] 2023-12-20 00:00:00 2023-12-20 00:00:00 OFFICE VISIT ESTAB PT LEVEL 4 [facility] [id number] [facility] 2023-12-20 00:00:00 2023-12-20 00:00:00 ANNA MARIE Baer: [address], [address], [place] [address] , Ph. [facility] - GC_GCBZW_Tanesha Auguste* [id number] [facility] 2023-12-06 00:00:00 2023-12-06 00:00:00 [facility] [id number] [facility] 2023-12-06 00:00:00 2023-12-06 00:00:00 Mireya Melendez MD: [address] [place] [address] , Ph. [facility] Jain [facility] Eye [facility] [id number] 100 [facility] 2023-11-29 00:00:00 2023-11-29 00:00:00 Olivia Rodas MD: [address], [address], [place] [address] , Ph. [facility] - GC_GCBZW_Tanesha flores Molina* [id number] [facility] 2023-11-22 00:00:00 2023-11-22 00:00:00 OFFICE VISIT ESTAB PT LEVEL 4 [facility] [id number] [facility] 2023-11-21 00:00:00 2023-11-21 00:00:00 (TEL) [facility] [id number] [facility] 2023-11-14 00:00:00 2023-11-14 00:00:00 Olivia Rodas MD: [address], [address], [place] [address] , Ph. [facility] - GC_GCBZW_Tanesha Auguste* [id number] [facility] 2023-11-01 00:00:00 2023-11-01 00:00:00 Mireya Melendez MD: [address] [place] [address] , [address] [facility] Eye [facility] 902 [facility] 2023-10-14 00:00:00 2023-10-14 00:00:00 Olivia Rodas MD: [address], [address], [place] [address] , Ph. [facility] - GC_GCBZW_La ke [place]* [id number] [facility] 2023-10-12 00:00:00 2023-10-12 00:00:00 Olivia Rodas MD: [address], [address], [place] [address] , Ph. [facility] GC_GCBZW_La [facility]* [id number] [facility] 2023-09-12 00:00:00 2023-09-12 00:00:00 OFFICE VISIT ESTAB PT LEVEL 4 STLMLC STLMLC [id number] [facility] 2023-08-03 00:00:00 2023-08-03 00:00:00 (TEL) STLMLC STLMLC [id number] [facility] 2023-06-03 00:00:00 2023-06-03 00:00:00 OFFICE VISIT ESTAB PT LEVEL 4 STLMLC STLMLC [id number] [facility] 2023-03-17 00:00:00 2023-03-17 00:00:00 Outpatient FERGUSON_SANDEEP ROBLES [facility] 2023-03-02 00:00:00 2023-03-02 00:00:00 OFFICE VISIT ESTAB PT LEVEL 4 STLMLC STLMLC [id number] [facility] 2023-03-02 00:00:00 2023-03-02 00:00:00 SUB ANNUAL [facility] WELLNESS VISIT [facility] [id number] [facility] 2023-03-01 00:00:00 2023-03-01 00:00:00 (TEL) [facility] [id number] [facility] 2023-01-11 00:00:00 2023-01-11 00:00:00 OFFICE VISIT ESTAB PT LEVEL 4 [facility] [id number] [facility] 2022-12-25 00:00:00 2022-12-25 00:00:00 Outpatient GC_GCBZW_Ka diyala_S [facility] [id number] [facility] 2022-10-11 00:00:00 2022-10-11 00:00:00 (TEL) [facility] [id number] [facility] 2022-10-08 00:00:00 2022-10-08 00:00:00 OFFICE VISIT ESTAB PT LEVEL 4 [facility] [id number] [facility] 2022-09-15 00:00:00 2022-09-15 00:00:00 (TEL) [facility] [id number] [facility] 2022-09-04 00:00:00 2022-09-04 00:00:00 Outpatient FERGUSON_JO HN [facility] [id number] [facility] 2022-08-26 00:00:00 2022-08-26 00:00:00 [facility]EL) [facility] [id number] [facility] 2022-08-17 00:00:00 2022-08-17 00:00:00 Outpatient FERGUSON_JO HN [facility] [id number] [facility] 2022-08-17 00:00:00 2022-08-17 00:00:00 Mireya Melendez MD: [address] [place] [address] , Ph. [facility]ain [facility] Eye Clinic [id number] [facility] 2022-07-05 00:00:00 2022-07-05 00:00:00 SUB ANNUAL [facility] WELLNESS [facility] [id number] [facility] 2022-07-05 00:00:00 2022-07-05 00:00:00 OFFICE VISIT ESTAB PT LEVEL 4 [facility] [id number] [facility] 2022-05-11 00:00:00 2022-05-11 00:00:00 Outpatient FERGUSON_JO HN [facility] [id number] [facility] 2022-05-11 00:00:00 2022-05-11 00:00:00 Mireya Melendez MD: [address] [place] [address] , Ph. [facility] Jain [facility] Eye [facility] [id number] [facility] 2022-02-15 00:00:00 2022-02-15 00:00:00 OL DIG E/M SVC 21+ MIN [facility] [id number] [facility] 2022-01-15 00:00:00 2022-01-15 00:00:00 Outpatient FERGUSON_JO HN [facility] [id number] [facility] 2022-01-05 00:00:00 2022-01-05 00:00:00 Outpatient FERGUSON_JO HN [facility] [id number] [facility] 2022-01-05 00:00:00 2022-01-05 00:00:00 Mireya Melendez MD: [address] [place] [address] , Ph. [facility] Jain [facility] Eye Clinic [id number] [facility] 2021-12-08 00:00:00 2021-12-08 00:00:00 Outpatient FERGUSON_JO HN [facility] [id number] [facility] 2021-12-08 00:00:00 2021-12-08 00:00:00 Mireya Melendez MD: [address] [place] [address] , Ph. [facility] Jain [facility] Eye Clinic [id number] [facility] 2021-12-02 00:00:00 2021-12-02 00:00:00 Outpatient FERGUSON_JO HN [facility] [id number] [facility] 2021-11-04 00:00:00 2021-11-04 00:00:00 (TEL) [facility] [id number] [facility] 2021-10-16 00:00:00 2021-10-16 00:00:00 OL DIG E/M SVC 21+ MIN [facility] [id number] [facility] 2021-08-26 02:20:00 2021-08-26 02:20:00 Outpatient FERGUSON_JO HN [facility] [id number] [facility] 2021-07-21 02:36:00 2021-07-21 02:36:00 Outpatient FERGUSON_JO HN [facility] [id number] [facility] 2021-07-16 00:00:00 2021-07-16 00:00:00 OFFICE VISIT EST PT LEVEL 3 [facility] [id number] [facility] 2021-07-16 00:00:00 2021-07-16 00:00:00 SUB ANNUAL [facility] WELLNESS VISIT [facility] [id number] [facility] 2021-05-26 03:03:00 2021-05-26 03:03:00 Outpatient FERGUSON_SANDEEP HN [facility] [id number] [place] [facility] [facility] 2021-04-13 00:00:00 2021-04-13 00:00:00 (TEL) STLMLC STLMLC [id number] [facility] 2021-04-10 00:00:00 2021-04-10 00:00:00 OFFICE VISIT ESTAB PT LEVEL 4 STLMLC STLMLC [id number] [facility] 2021-02-12 00:00:00 2021-02-12 00:00:00 (TEL) STLMLC STLMLC [id number] [facility] 2020-12-03 00:00:00 2020-12-03 00:00:00 (TEL) STLMLC STLMLC [id number] [facility] 2020-12-02 00:00:00 2020-12-02 00:00:00 SUB ANNUAL [facility] VISIT STLMLC STLMLC [id number] [facility] 2020-12-02 00:00:00 2020-12-02 00:00:00 OFFICE VISIT ESTAB PT LEVEL 3 STLMLC STLMLC [id number] [facility] 2020-11-26 02:50:00 2020-11-26 02:50:00 Outpatient FERGUSON_SANDEEP HN [facility] [id number] [facility] 2020-10-15 00:00:00 2020-10-15 00:00:00 Outpatient STLMLC STLMLC [id number] [facility] 2020-10-02 00:00:00 2020-10-02 00:00:00 Outpatient STLMLC STLMLC [id number] [facility] 2020-05-21 04:12:00 2020-05-21 04:12:00 Outpatient FERGUSON_SANDEEP HN [facility] [id number] [facility] 2020-05-05 00:00:00 2020-05-05 00:00:00 Outpatient STLMLC STLMLC [id number] [facility] 2020-05-02 00:00:00 2020-05-02 00:00:00 Outpatient STLMLC STLMLC [id number] [facility] 2020-05-02 00:00:00 2020-05-02 00:00:00 Outpatient STLMLC STLMLC [id number] [facility] 2020-01-21 00:00:00 2020-01-21 00:00:00 Outpatient STLMLC STLMLC [id number] [facility] 2020-01-17 00:00:00 2020-01-17 00:00:00 Outpatient STLMLC STLMLC [id number] [facility] 2020-01-07 00:00:00 2020-01-07 00:00:00 Outpatient STLMLC STLMLC [id number] [facility] 2019-12-06 00:00:00 2019-12-06 00:00:00 Outpatient STLMLC STLMLC [id number] [facility] 2019-10-22 15:29:00 2019-10-22 15:29:00 Outpatient [facility] [id number] [facility] 2019-10-11 04:44:00 2019-10-11 04:44:00 Outpatient FERDOMINIQUE_SANDEEP [facility] [id number] [facility] 2019-09-16 18:07:00 2019-09-16 18:07:00 [facility] [id number] [facility] 2019-09-11 09:40:00 2019-09-11 09:40:00 [facility] [id number] [facility] 2019-07-18 04:23:00 2019-07-18 04:23:00 Outpatient FERGUSON_JO HN [facility] [id number] [facility] 2019-04-10 03:01:00 2019-04-10 03:01:00 Outpatient FERGUSON_JO HN [facility] [id number] [facility] 2019-03-20 00:58:00 2019-03-20 00:58:[address] [facility] [facility] [facility] [id number] [facility] 2019-03-18 21:44:00 2019-03-18 21:44:[address] [facility] [facility] [facility] [id number] [facility] 2019-03-15 11:00:00 2019-03-15 11:00:[address] [facility] [address] [facility] [id number] [facility] 2018-09-28 11:00:00 2018-09-28 11:00:[address] [facility] [facility] [address] [facility] [id number] [facility] 2018-09-12 10:08:00 2018-09-12 10:08:[address] [facility] [facility] [address] [facility] [id number] [facility] 2018-09-07 14:40:00 2018-09-07 14:40:[address] [facility] [facility] [address] [facility] [id number] [facility] 2018-04-11 13:06:00 2018-04-11 13:06:[address] [facility] [facility] [address] [facility] [id number] [facility] 2018-04-11 11:00:00 2018-04-11 11:00:[address] [facility] [facility] [facility] [id number] [facility] 2018-04-03 20:51:00 2018-04-03 20:51:[address] [facility] [facility] [facility] [id number] [facility] 2018-04-03 11:00:00 2018-04-03 11:00:00 Outpatient [facility] [id number] [facility] 2017-10-24 10:30:00 2017-10-24 10:30:00 Outpatient [facility] [id number] [facility] 2017-09-22 11:30:00 2017-09-22 11:30:00 Outpatient [facility] [id number] [facility] 2017-09-07 10:00:00 2017-09-07 10:00:00 Outpatient [facility] [id number] [facility] 2017-05-16 10:30:00 2017-05-16 10:30:00 Outpatient [facility] [id number] [facility] Results Test Description Test Time Test Comments Results Result Co mments Source urinalysis, [id number] 09:03:00* Test Item Value Reference Range Interpretation Comme nts Leukocytes (test code = Leukocytes) 2+ Nitrite (test code = Nitrite) negative Urobilinogen (test code = Urobilinogen) Normal Protein (test code = Protein) Negative pH (test code = pH) 6.5 Blood (test code = Blood) Negative Specific [place] (test code = Specific [place]) 1.005 Ketone (test code = Ketone) Negative Bilirubin (test code = Bilirubin) Negative Glucose (test code = Glucose) Negative Appearance (test code = Appearance) Clear Color (test code = Color) Yellow [facility]rine by [id number] 00:00:00* Test Item Value Reference Range Interpretation Comme nts urine culture,comprehensive (test code = urine culture,comprehensive) Final report A result 1 (test code = result 1) Escherichia coli A antimicrobial susceptibility (test code = antimicrobial susceptibility) Comment [facility], [id number] 00:00:00* Test Item Value Reference Range Interpretation Comme nts WBC (test code = WBC) >30 0-5 A RBC (test code = RBC) 3-10 0-2 A casts (test code = casts) None seen none seen crystals (test code = crystals) Comment cast type (test code = cast type) Comment epithelial cells (non renal) (test code = epithelial cells (non renal)) 0-10 0-10 epithelial cells (renal) (te st code = epithelial cells (renal)) Comment trichomonas (test code = trichomonas) Comment crystal type (test code = cr ystal type) Comment bacteria (test code = bacteria) Many none seen/few A mucus threads (test code = m ucus threads) Comment yeast (test code = yeast) Comment comment (test code = comment) Comment [facility]inal[facility] complete W Reflex Culture panel - [id number] 00:00:00* Test Item Value Reference Range Interpretation Comme nts microscopic examination (wilian t code = microscopic examination) COMMENT urine-color (test code = urine-color) YELLOW yellow appearance (test code = appearance) CLOUDY clear A specific gravity (test code = specific gravity) 1.020 1.005-1.030 pH (test code = pH) 6.0 5.0-7.5 glucose (test code = glucose) NEGATIVE negative protein (test code = protein) TRACE negative/trace occult blood (test code = oc cult blood) NEGATIVE negative bilirubin (test code = bilirubin) NEGATIVE negative urobilinogen,semi-qn (test c ode = urobilinogen,semi-qn) 0.2 mg/dL 0.2-1.0 nitrite, urine (test code = nitrite, urine) POSITIVE negative A ketones (test code = ketones) TRACE negative A WBC esterase (test code = WB C esterase) 3+ negative A urinalysis reflex (test code = urinalysis reflex) COMMENT [facility], [id number] 14:34:00* Test Item Value Reference Range Interpretation Comme nts Leukocytes (test code = Leukocytes) 1+ Nitrite (test code = Nitrite) positive Urobilinogen (test code = Urobilinogen) 0.2 Protein (test code = Protein) Negative pH (test code = pH) 6.0 Blood (test code = Blood) Negative Specific [place] (test code = Specific [place]) 1.010 Ketone (test code = Ketone) Trace Bilirubin (test code = Bilirubin) Negative Glucose (test code = Glucose) Negative Appearance (test code = Appearance) Slightly Cloudy Color (test code = Color) [facility] [id number] 00:00:00* Test Item Value Reference Range Interpretation Comme nts tet B, tet M (test code = te t B, tet M) 19.078 ppm 23.000-27.778 A acinetobacter baumannii (wilian t code = acinetobacter baumannii) 0.000 ppm 19.961-24.689 citrobacter freundii (test c ode = citrobacter freundii) 0.000 ppm 23.000-31.881 enterobacter aerogenes, cloa (test code = enterobacter aerogenes, cloacae) 0.000 ppm 23.000-31.535 enterococcus faecalis, faeci um (test code = enterococcus faecalis, faecium) 0.000 ppm 26.000-31.575 escherichia coli (test code = escherichia coli) 19.022 ppm 23.000-28.500 A klebsiella pneumoniae, oxyto ca (test code = klebsiella pneumoniae, oxytoca) 0.000 ppm 23.000-30.500 morganella morganii (test co de = morganella morganii) 0.000 ppm 19.961-24.689 proteus mirabilis, vulgaris (test code = proteus mirabilis, vulgaris) 0.000 ppm 23.000-28.500 pseudomonas aeruginosa (test code = pseudomonas aeruginosa) 0.000 ppm 23.000-28.500 staphylococcus aureus (test code = staphylococcus aureus) 0.000 ppm 26.000-30.902 streptococcus agalactiae (gr oup B strep) (test code = streptococcus agalactiae (group B strep)) 0.000 ppm 26.000-32.222 nohemi albicans, parapsilos is, tropicalis (test code = nohemi albicans, parapsilosis, tropicalis) 0.000 ppm 19.961-30.770 nohemi glabrata (test code = nohemi glabrata) 0.000 ppm 23.000-32.138 nohemi krusei (test code = nohemi krusei) 0.000 ppm 23.000-32.271 serratia marcescens (test co de = serratia marcescens) 0.000 ppm 23.000-31.204 streptococcus pyogenes (grou p A strep) (test code = streptococcus pyogenes (group A strep)) 0.000 ppm 19.961-24.689 staphylococcus saprophyticus (test code = staphylococcus saprophyticus) 0.000 ppm 19.961-24.689 staphylococcus epidermidis, haemolyticus, lugdunensis (test code = staphylococcus epidermidis, haemolyticus, lugdunensis) 0.000 ppm 19.961-24.689 [facility] [id number] 13:36:47* Test Item Value Reference Range Interpretation Comme nts Leukocytes (test code = Leukocytes) 2+ Nitrite (test code = Nitrite) positive Urobilinogen (test code = Urobilinogen) Normal Protein (test code = Protein) Negative pH (test code = pH) 6.0 Blood (test code = Blood) Non-Hemolyzed: Moderate Specific [place] (test code = Specific [place]) 1.010 Ketone (test code = Ketone) Negative Bilirubin (test code = Bilirubin) Negative Glucose (test code = Glucose) Negative Appearance (test code = Appearance) Slightly Cloudy Color (test code = Color) Yellow [facility] W/AUTO [id number] 00:00:00* Test Item Value Reference Range Interpretation Comme nts NUCLEATED RBCS (test code = 57215-0) 0.0 /100 WBC'S See_Comment [Automated messa [employer]] The system which generated this result transmitted reference range: 0.0 /100 WBC'S. The reference range was not used to interpret this result as normal/abnormal. ABSOLUTE EOSINOPHILS (test code = 93400-1) 0.09 K/UL See_Comment [Automated messa ge] The system which generated this result transmitted reference range: 0.00-0.50 K/UL. The reference range was not used to interpret this result as normal/abnormal. ABSOLUTE LYMPHOCYTES (test code = 58127-9) 1.34 K/UL See_Comment [Automated [employer]] The system which generated this result transmitted reference range: 1.00-4.00 K/UL. The reference range was not used to interpret this result as normal/abnormal. ABSOLUTE MONOCYTES (test code = 83914-1) 0.41 K/UL See_Comment [Automated [employer]] The system which generated this result transmitted reference range: 0.20-1.00 K/UL. The reference range was not used to interpret this result as normal/abnormal. ABSOLUTE NEUTROPHILS (test code = 58750-4) 2.28 K/UL See_Comment [Automated messa ge] The system which generated this result transmitted reference range: 1.50-7.50 K/UL. The reference range was not used to interpret this result as normal/abnormal. BASOPHILS (test code = 12028-2) 1.2 % COMMENTS (test code = 27152-5) (NOTE) EOSINOPHILS (test code = 73202-2) 2.2 % HEMATOCRIT (test code = 02066-1) 39.1 % See_Comment [Automated messa ge] The system which generated this result transmitted reference range: 34.0-45.0 %. The reference range was not used to interpret this result as normal/abnormal. HEMOGLOBIN (test code = 718-7) 12.8 G/DL See_Comment [Automated messa ge] The system which generated this result transmitted reference range: 11.5-15.5 G/DL. The reference range was not used to interpret this result as normal/abnormal. LYMPHOCYTES (test code = 81429-8) 32.1 % MCH (test code = 57741-6) 28.3 PG See_Comment [Automated messa ge] The system which generated this result transmitted reference range: 25.0-33.0 PG. The reference range was not used to interpret this result as normal/abnormal. MCHC (test code = 43459-7) 32.7 G/DL See_Comment [Automated messa ge] The system which generated this result transmitted reference range: 31.0-36.0 G/DL. The reference range was not used to interpret this result as normal/abnormal. MCV (test code = 16560-2) 86.3 fL See_Comment [Automated messa ge] The system which generated this result transmitted reference range: 80.0-99.0 fL. The reference range was not used to interpret this result as normal/abnormal. MONOCYTES (test code = 85693-6) 9.8 % NEUTROPHILS (test code = 16878-7) 54.5 % PLATELET COUNT (test code = 83759-5) 210 K/UL See_Comment [Automated messa ge] The system which generated this result transmitted reference range: 130-400 K/UL. The reference range was not used to interpret this result as normal/abnormal. RBC (test code = 28571-9) 4.53 M/UL See_Comment [Automated messa ge] The system which generated this result transmitted reference range: 3.80-5.40 M/UL. The reference range was not used to interpret this result as normal/abnormal. RDW (test code = 63824-1) 14.0 % See_Comment [Automated messa ge] The system which generated this result transmitted reference range: 11.5-15.0 %. The reference range was not used to interpret this result as normal/abnormal. WBC (test code = 96615-4) 4.2 K/UL See_Comment [Automated messa ge] The system which generated this result transmitted reference range: 3.5-11.0 K/UL. The reference range was not used to interpret this result as normal/abnormal. HEMOGLOBIN [id number] 00:00:00* Test Item Value Reference Range Interpretation Comme nts A1C (test code = 4548-4) 5.9 CBC W/AUTO [id number] 00:00:00* Test Item Value Reference Range Interpretation Comme nts NUCLEATED RBCS (test code = 54006-7) 0.0 /100 WBC'S See_Comment [Automated messa ge] The system which generated this result transmitted reference range: 0.0 /100 WBC'S. The reference range was not used to interpret this result as normal/abnormal. ABSOLUTE EOSINOPHILS (test code = 83016-6) 0.05 K/UL See_Comment [Automated messa ge] The system which generated this result transmitted reference range: 0.00-0.50 K/UL. The reference range was not used to interpret this result as normal/abnormal. ABSOLUTE LYMPHOCYTES (test code = 95086-6) 1.25 K/UL See_Comment [Automated messa ge] The system which generated this result transmitted reference range: 1.00-4.00 K/UL. The reference range was not used to interpret this result as normal/abnormal. ABSOLUTE MONOCYTES (test code = 37037-3) 0.42 K/UL See_Comment [Automated messa ge] The system which generated this result transmitted reference range: 0.20-1.00 K/UL. The reference range was not used to interpret this result as normal/abnormal. ABSOLUTE NEUTROPHILS (test code = 33260-2) 2.96 K/UL See_Comment [Automated messa ge] The system which generated this result transmitted reference range: 1.50-7.50 K/UL. The reference range was not used to interpret this result as normal/abnormal. BASOPHILS (test code = 24878-5) 1.7 % COMMENTS (test code = 73376-8) (NOTE) EOSINOPHILS (test code = 03751-8) 1.0 % HEMATOCRIT (test code = 08813-3) 39.6 % See_Comment [Automated messa ge] The system which generated this result transmitted reference range: 34.0-45.0 %. The reference range was not used to interpret this result as normal/abnormal. HEMOGLOBIN (test code = 718-7) 13.3 G/DL See_Comment [Automated messa ge] The system which generated this result transmitted reference range: 11.5-15.5 G/DL. The reference range was not used to interpret this result as normal/abnormal. LYMPHOCYTES (test code = 58185-2) 26.2 % MCH (test code = 32462-0) 28.9 PG See_Comment [Automated messa ge] The system which generated this result transmitted reference range: 25.0-33.0 PG. The reference range was not used to interpret this result as normal/abnormal. MCHC (test code = 05674-6) 33.6 G/DL See_Comment [Automated messa ge] The system which generated this result transmitted reference range: 31.0-36.0 G/DL. The reference range was not used to interpret this result as normal/abnormal. MCV (test code = 22391-0) 86.1 fL See_Comment [Automated messa ge] The system which generated this result transmitted reference range: 80.0-99.0 fL. The reference range was not used to interpret this result as normal/abnormal. MONOCYTES (test code = 90821-1) 8.8 % NEUTROPHILS (test code = 92427-3) 61.9 % PLATELET COUNT (test code = 41545-1) 237 K/UL See_Comment [Automated messa ge] The system which generated this result transmitted reference range: 130-400 K/UL. The reference range was not used to interpret this result as normal/abnormal. RBC (test code = 29205-0) 4.60 M/UL See_Comment [Automated [employer]] The system which generated this result transmitted reference range: 3.80-5.40 M/UL. The reference range was not used to interpret this result as normal/abnormal. RDW (test code = 22416-9) 13.8 % See_Comment [Automated [employer]] The system which generated this result transmitted reference range: 11.5-15.0 %. The reference range was not used to interpret this result as normal/abnormal. WBC (test code = 40386-8) 4.8 K/UL See_Comment [[employer]] The system which generated this result transmitted reference range: 3.5-11.0 K/UL. The reference range was not used to interpret this result as normal/abnormal.
[2024-01-09 11:18] LABS: Absolute Eosinophils 0.1 K/uL (0-0.5); Absolute Lymphocytes (CBC) 1.2 K/uL (0.7-4.9); Absolute Monocytes 0.5 K/uL (0.1-1.3); Absolute Neutrophil 2.5 K/uL (1.8-8.0); Basophils % 0.7 % (0-1.3); Eosinophils % 2.5 % (0-4.4); Hematocrit 35.9 % (36.0-45.0); Hemoglobin 12.3 g/dL (12.0-15.0); Lymphocytes % 28.4 % (15.3-44.8); MCH 30.6 pg (27.0-35.0); MCHC 34.3 g/dL (32.0-36.0); MCV 89.3 fL (80-100); MPV 7.4 fL (7.6-11.3); Monocytes % 10.9 % (3.3-12.3); Neutrophils % 57.5 % (41.7-73.7); Nucleated Red Blood Cells % 0.1 % (0-0); PT Prothrombin Time 12.5 SECONDS (9.4-12.5); Platelets 187 thou/uL (152-406); Protime INR 1.12; RBC Red Blood Cell Count 4.02 M/uL (3.86-4.86); Red Cell Distribution Width 13.8 % (12.1-15.2)
[2024-01-09] MEDS ORDERED: FUROSEMIDE 40 MG/4 ML VIAL ONE (12:42)
--- NOTE | 2024-01-09 13:35 | EDPHYS ---
Physician Documentation [facility] Name: Celia Shaw Age: 88 yrs Sex: Female : 1935 Arrival Date: 01/09/2024 Time: 10:25 Bed 20 Private MD: ED Physician Gabriela Rossi HPI: 01/08 13:41 This 88 yrs old Black Female presents to ER via Wheelchair with complaints of Leg gb1 Swelling, Feet Swelling. 13:46 88-year-old -[place] female states that her lower extremities have been gb1 swelling and they have been more painful over the last month. She is possibly taking furosemide 20 mg once daily, but told her doctor has been going to the restroom too much and so he told her that she could stretch it out to every other day. Patient is been eating out with a lot of salt in her diet as well. She denies any chest pain shortness of breath she does also have a history of hyperlipidemia and hypertension as well as lymphoma.. Historical: - Allergies: 10:37 NKA; ll1 - PMHx: 10:37 Hyperlipidemia; Hypertension; LYMPHOMA; PE; ll1 - Immunization history:: Adult Immunizations up to date. - Infectious Disease History:: Denies. - Social history:: Smoking status: Patient denies any tobacco usage or history of. Exam: 13:48 Constitutional: This is a well developed, well nourished patient who is awake, alert, gb1 and in no acute distress. Head/Face: Normocephalic, atraumatic. Eyes: Pupils equal round and reactive to light, extra-ocular motions intact. Lids and lashes normal. Conjunctiva and sclera are non-icteric and not injected. Cornea within normal limits. Periorbital areas with no swelling, redness, or edema. ENT: Nares patent. No nasal discharge, no septal abnormalities noted. Tympanic membranes are normal and external auditory canals are clear. Oropharynx with no redness, swelling, or masses, exudates, or evidence of obstruction, uvula midline. Mucous membranes moist. Neck: Trachea midline, no thyromegaly or masses palpated, and no cervical lymphadenopathy. Supple, full range of motion without nuchal rigidity, or vertebral point tenderness. No Meningismus. Chest/axilla: Normal chest wall appearance and motion. Nontender with no deformity. No lesions are appreciated. Cardiovascular: Regular rate and rhythm with a normal S1 and S2. No gallops, murmurs, or rubs. Normal PMI, no JVD. No pulse deficits. Respiratory: Lungs have equal breath sounds bilaterally, clear to auscultation and percussion. No rales, rhonchi or wheezes noted. No increased work of breathing, no retractions or nasal flaring. Back: No spinal tenderness. No costovertebral tenderness. Full range of motion. Female : Normal external genitalia. Skin: Warm, dry with normal turgor. Normal color with no rashes, no lesions, and no evidence of cellulitis. MS/ Extremity: Pulses equal, no cyanosis. Neurovascular intact. Full, normal range of motion. Vital Signs: 10:45 BP 157 / 86; Pulse 63; Resp 17; Temp 97.5; Pulse Ox 99% on R/A; Weight 97.52 kg; Height ll1 5 ft. 7 in. ; Pain 10/10; 12:20 BP 168 / 96; Pulse 68; Resp 16; Pulse Ox 97% ; bp 14:01 BP 162 / 85; Pulse 71; Resp 16; Pulse Ox 98% ; bp 10:45 Body Mass Index 33.67 (97.52 kg, 170.18 cm) ll1 10:45 Pain Scale: Adult ll1 MDM: 10:45 Medical Screening Exam initiated gb1 13:46 Data reviewed: vital signs, nurses notes. ED course: 88-year-old female lower extremity gb1 peripheral edema nonpitting. Patient is elevated blood pressure and noncompliant with her prescribed Lasix likely secondary to peripheral edema. No signs of pulmonary edema doubt ACS although her creatinine is increasing slightly. She does have an appoint with her PCM in the next couple weeks and I did discuss with her to talk with him or her about her renal labs. Patient is otherwise stable at discharge EKG shows a junctional rhythm at 63 with flattened T waves diffusely.. 01/08 10:45 Order name: Basic Metabolic Panel; Complete Time: 11:44 gb1 01/08 10:45 Order name: CBC with Diff; Complete Time: 11:44 gb1 01/08 10:45 Order name: NT PRO-BNP; Complete Time: 11:44 gb1 01/08 10:45 Order name: PT-INR; Complete Time: 11:44 gb1 01/08 10:45 Order name: Troponin HS; Complete Time: 11:[address] [facility] 01/08 10:45 Order name: XRAY Chest (1 view) [facility] 01/08 10:45 Order name: Cardiac monitoring; Complete Time: :[address] [facility] 01/08 10:45 Order name: EKG - Nurse/Tech; Complete Time: : [facility] 01/08 10:45 Order name: IV Saline Lock; Complete Time: : [facility] 01/08 10:45 Order name: Labs collected and sent; Complete Time: : [facility] 01/08 10:45 Order name: O2 Per Protocol; Complete Time: : [facility] 01/08 10:45 Order name: O2 Sat Monitoring; Complete Time: [facility] Administered Medications: 12:46 Drug: Furosemide IVP 40 mg IVP once; give over 2 minutes Route: IVP; Site: right bp antecubital; 14:02 Follow up: Response: No adverse reaction bp Disposition Summary: 01/09/24 13:34 Discharge Ordered Notes: Location: Home gb1 Condition: Stable gb1 Diagnosis - Edema, unspecified gb1 Followup: gb1 - With: Private Physician - When: As needed - Reason: Further diagnostic work-up Discharge Instructions: - Discharge Summary Sheet gb1 - Peripheral Edema gb1 Forms: - Medication Reconciliation Form gb1 - Antibiotic Education gb1 - Prescription Opioid Use gb1 - Patient Portal Instructions gb1 - Leadership Thank You Letter gb1 Signatures: Dispatcher [employer] Norm Regan RN RN bp Lewis, Lynsay, RN RN [facility] Gabriela Rossi MD MD gb1
--- NOTE | 2024-01-09 13:35 | ER ---
Nurse's Notes [facility] Name: Celia Shaw Age: 88 yrs Sex: Female : 1935 Arrival Date: 01/09/2024 Time: 10:25 Bed 20 Private MD: Diagnosis: Edema, unspecified Presentation: 01/08 10:45 Chief complaint: Patient states: B feet swelling for 2 weeks. Blister noted to R foot, ll1 denies fever and SOB. Coronavirus screen: Client denies travel out of the [place] in the last 14 days. At this time, the client does not indicate any symptoms associated with coronavirus-19. Ebola Screen: Patient denies travel to an Ebola-affected area in the 21 days before illness onset. Initial Sepsis Screen: Does the patient meet any 2 criteria? No. Patient's initial sepsis screen is negative. Does the patient have a suspected source of infection? No. Patient's initial sepsis screen is negative. Risk Assessment: Do you want to hurt yourself or someone else? Patient reports no desire to harm self or others. Onset of symptoms was December 26, 2023. 10:45 Method Of Arrival: Wheelchair ll1 10:45 Acuity: MIKE 3 ll1 Triage Assessment: 10:47 General: Appears uncomfortable, Behavior is calm, cooperative, appropriate for age. ll1 Pain: Complains of pain in right leg and left leg Pain currently is 10 out of 10 on a pain scale. Quality of pain is described as aching. Derm: Reports blisters R foot. Musculoskeletal: Reports pain in right leg and left leg BLE swelling. Historical: - Allergies: 10:37 NKA; ll1 - PMHx: 10:37 Hyperlipidemia; Hypertension; LYMPHOMA; PE; ll1 - Immunization history:: Adult Immunizations up to date. - Infectious Disease History:: Denies. - Social history:: Smoking status: Patient denies any tobacco usage or history of. Screenin:20 [facility] ED Fall Risk Assessment (Adult) History of falling in the last 3 months, bp including since admission No falls in past 3 months (0 pts) Confusion or Disorientation No (0 pts) Intoxicated or Sedated No (0 pts) Impaired Gait No (0 pts) Mobility Assist Device Used No (0 pt) Altered Elimination No (0 pt) Score/Fall Risk Level 0 - 2 = Low Risk Oriented to surroundings. Abuse screen: Denies threats or abuse. Denies injuries from another. Nutritional screening: No deficits noted. Tuberculosis screening: No symptoms or risk factors identified. Assessment: 10:45 General: Appears in no apparent distress. Behavior is calm, cooperative, appropriate bp for age. Musculoskeletal: Swelling present in right foot, left foot, right leg and left leg. 12:20 Reassessment: No changes from previously documented assessment. Patient is alert, bp oriented x 3, equal unlabored respirations, skin warm/dry/pink. Vital Signs: 10:45 BP 157 / 86; Pulse 63; Resp 17; Temp 97.5; Pulse Ox 99% on R/A; Weight 97.52 kg; Height ll1 5 ft. 7 in. ; Pain 10/10; 12:20 BP 168 / 96; Pulse 68; Resp 16; Pulse Ox 97% ; bp 14:01 BP 162 / 85; Pulse 71; Resp 16; Pulse Ox 98% ; bp 10:45 Body Mass Index 33.67 (97.52 kg, 170.18 cm) ll1 10:45 Pain Scale: Adult ll1 ED Course: 10:29 Patient arrived in ED. mr 10:32 Gabriela Rossi MD is Attending Physician. gb1 10:37 Arm band placed on Patient placed in an exam room, on a stretcher. ll1 10:43 Norm Carnes, RN is Primary Nurse. bp 10:47 Triage completed. ll1 11:06 XRAY Chest (1 view) In Process Unspecified. EDMS 11:08 Initial lab(s) drawn, by me, sent to lab. EKG done, by ED staff, reviewed by Gabriela Rossi MD. Inserted saline lock: 22 gauge in right antecubital area, using aseptic technique. Blood collected. Flushed with 10 mL NS. 12:20 Patient has correct armband on for positive identification. bp 14:00 No provider procedures requiring assistance completed. IV discontinued, intact, bp bleeding controlled, No redness/swelling at site. Pressure dressing applied. 14:01 Provided Education on: N/A. bp Administered Medications: 12:46 Drug: Furosemide IVP 40 mg IVP once; give over 2 minutes Route: IVP; Site: right bp antecubital; 14:02 Follow up: Response: No adverse reaction bp Medication: 14:01 VIS not applicable for this client. bp Outcome: 13:34 Discharge ordered by . gb1 14:00 Discharged to home via wheelchair, with family, bp 14:00 Condition: stable 14:00 Discharge instructions given to patient, Instructed on discharge instructions, follow up and referral plans. Demonstrated understanding of instructions, follow-up care, 14:02 Patient left the ED. bp Signatures: Dispatcher [employer] EDMS Hailey Andrea, Reg Reg mr Norm Carnes, RN RN bp Lianna Calderon RN RN ll1 Gabriela Rossi MD MD gb1
[2024-01-09 14:20] VITALS: TEMP 97.5
[2024-01-09 14:27] VITALS: BP 162/85; O2SAT 98
--- NOTE | 2024-01-09 14:40 | RAD REPORT ---
EXAMINATION: ONE VIEW CHEST XR CLINICAL INDICATION: Female, 88 years old.SWELLING TECHNIQUE: 1 View, AP supine, X-ray of the chest was performed. [id number]. COMPARISON: 09/20/2015 FINDINGS: Lungs and pleura: Clear lungs. No effusion. Heart and mediastinum: Normal heart size. Unremarkable mediastinal contours. Osseous structures: No acute abnormality. Tubes/lines: None Other: None. IMPRESSION: No acute intrathoracic abnormality.
--- NOTE | 2024-01-10 08:54 | EKG ---
Test Date: 2024-01-09 Test Time: 10:55:22 [employer] Teacher: NESSA MEASUREMENT RESULTS: Intervals: Rate: 63 TX: QRSD: 80 QT: 390 QTc: 399 [place]: P: TX: QRS: -2 T: 38 INTERPRETIVE STATEMENTS: Normal sinus rhythm Nonspecific T wave abnormality Abnormal ECG Compared to ECG 09/21/2015 06:06:41 Atrial premature complex(es) no longer present T-wave abnormality still present Electronically Signed On 01-10-24 08:52:08 AUDIT CLERK by Antonio Dimas
== END 2024-01-09 14:02 | disposition home or self-care (01) ==
LOC: ER 10:25
DX: R60.0 Localized edema (principal); I10 Essential (primary) hypertension; Z85.72 Personal history of non-Hodgkin lymphomas; Z86.711 Personal history of pulmonary embolism
CPT/HCPCS: 93005; 85025; 80048; 36415; 85610; 84484; 83880; 71045; J1940; 96374; 99284